=== PATIENT | female | born 1960 | race Caucasian/White ===

== ENCOUNTER → 2017-10-13 16:51 | Outpatient (CLI) | payer OTHER, SELFPAY | PROVIDERS: Family Provider Family Medicine; PCP Family Medicine; Visit Provider Otolaryngology Otolaryngology/Facial Plastic Surgery | DX: J32.9 Chronic sinusitis, unspecified (principal) | CPT/HCPCS: 87070; 87077; 87186; 87205 ==

== ENCOUNTER → 2017-12-24 16:00 | Outpatient (CLI) | payer OTHER, SELFPAY ==
--- NOTE | 2017-12-24 16:00 | DT_ITS ---
This patient was seen during an EMR downtime December 21, 2017 - December 28, 2017. This patient may have a combination of paper and electronic documentation or all paper documentation. All documentation is viewable within the e-chart portion of [facility] for each patient visit.
== END ==
PROVIDERS: Family Provider Family Medicine; PCP Family Medicine; Visit Provider Family Medicine
DX: N39.0 Urinary tract infection, site not specified (principal)
CPT/HCPCS: 87086; 87088

== ENCOUNTER → 2018-06-14 17:08 | Outpatient (CLI) | payer OTHER, SELFPAY ==
--- OUTSIDE RECORDS SUMMARY | 2018-07-27 16:23 | XMS RPT_ITS ---
:1960 Author Organization OH[facility] Care Team Providers Name Role Phone SYMONE FONSECA Referring Unavailable BRENDAN JAMESON (HIGH SCHOOL [employer] TE[employer]ER) Attending Unavailable ERIC NAYLOR Attending Unavailable ERIC NAYLOR Referring Unavailable JAYY CABRERA (HIGH SCHOOL [employer]EN[employer] TEACHER) Attending Unavailable JAYY CABRERA (HIGH SCHOOL [employer]EN[employer] TEACHER) Attending Unavailable ANNA LICEA Attending Unavailable JYOTI MATHIAS (RD) Attending Unavailable ERIC NAYLOR Referring Unavailable Mauricio Cadena Attending Unavailable Dylan Syed Primary Care Unavailable Mauricio Cadena Referring Unavailable Dylan Syed Attending Unavailable Dylan Syed Primary Care Unavailable Montse Sanchez Attending Unavailable Montse Sanchez Referring Unavailable Dylan Syed Primary Care Unavailable PROBLEMS PROBLEMS DATE TYPE CONDITION / CODE ATTENDING STATUS SOURCE 06/30/[address] [facility] thyroiditis / [facility] [place] E06.3(ICD-10) Repository 06/30/2018 Active Unspecified asthma, NA Active [facility] uncomplicated / [place] J45.909(ICD-10) Repository 06/30/2018 Active Essential (primary) NA Active [facility] hypertension / [place] I10(ICD-10) Repository 06/30/2018 Active Body mass index NA Active [facility] (bmi) 33.0-33.9, [place] adult / Repository Z68.33(ICD-10) 02/17/2018 Active Tinea unguium / NA Active [facility] B35.1(ICD-10) [place] Repository 01/14/2018 Unknown N39.0 - Urinary Syed, Dylan Active [place] tract infection, Community site not specified Hospital / N39.0(ICD-10) Repository 10/01/2017 Active Hyperglycemia, NA Active [facility] unspecified / [place] R73.9(ICD-10) Repository PROCEDURES PROCEDURES No Procedure Records FoundRESULTS RESULTS HOMOCYSTEINE Collected: 06/30/2018 Status: F Source: [place] 1:28 [facility] REPOSITORY TYPE CODE TESTS RESULT OUT OF REFERENCE UNITS RANGE LAB HOMCYS <15.1 umol/L Homocysteine 12.3 Performed By: #### HOMCYS, VITD, TGAB, MICRO, INSULN, HSCRP, HBA1C, GLIIGA, GLIIGG, TGIGA, TGIGG, MMA #### [facility] [address] [place] [address] VITAMIN D 25 HYDROXY Collected: 06/30/2018 Status: F Source: [place] 1:28 [facility] REPOSITORY TYPE CODE TESTS RESULT OUT OF REFERENCE UNITS RANGE LAB VITD 31.0-80.0 ng/mL Vitamin D 25 53.1 Hydroxy Result Comment: Classification of 25 [place] Vitamin D status: Insufficiency/Moderate Deficiency: < or = 30 ng/mL Sufficiency/Optimal Levels: 31 to 80 ng/mL Toxicity: > 100 ng/mL Test performed by chemiluminescent immunoassay. Performed By: #### HOMCYS, VITD, TGAB, MICRO, INSULN, HSCRP, HBA1C, GLIIGA, GLIIGG, TGIGA, TGIGG, MMA #### [facility] [address] [place] [id number] THYROGLOBULIN AB Collected: 06/30/2018 Status: F Source: [place] 1:28 PM [facility] REPOSITORY TYPE CODE TESTS RESULT OUT OF REFERENCE UNITS RANGE LAB TGAB <14.4 IU/mL Thyroglobulin Ab <1.0 Performed By: #### HOMCYS, VITD, TGAB, MICRO, INSULN, HSCRP, HBA1C, GLIIGA, GLIIGG, TGIGA, TGIGG, MMA #### [place] [id number] [place]PO ANTIBODY Collected: 06/30/2018 Status: F Source: [place] 1:28 [facility] REPOSITORY TYPE CODE TESTS RESULT OUT OF REFERENCE UNITS RANGE LAB MICRO <5.6 IU/mL TPO Antibody <1.0 Performed By: #### HOMCYS, VITD, TGAB, MICRO, INSULN, HSCRP, HBA1C, GLIIGA, GLIIGG, TGIGA, TGIGG, MMA #### [place] [address] INSULIN Collected: 06/30/2018 Status: F Source: [place] 1:[address] [place] [address] REPOSITORY TYPE CODE TESTS RESULT OUT OF REFERENCE UNITS RANGE LAB INSULN 1-24 uU/mL Insulin 19.5 Performed By: #### HOMCYS, VITD, TGAB, MICRO, INSULN, HSCRP, HBA1C, GLIIGA, GLIIGG, TGIGA, TGIGG, MMA #### [place] [address] ULTRA-SENSITIVE CRP Collected: 06/30/2018 Status: F Source: [place] 1:[address] [place] [address] REPOSITORY TYPE CODE TESTS RESULT OUT OF REFERENCE UNITS RANGE LAB CRPUS <3.1 mg/L High UltraSens 3.6 C-ReacProt Result Comment: (NOTE) hsCRP < 1.0 mg/L, relative risk is low hsCRP 1.0-3.0 mg/L, relative risk is average hsCRP > 3.0 mg/L, relative risk is high Reference: Millie TA, Nasrin GA, Guy RW, et al. Markers of Inflammation and Cardiovascular Disease. Application to Clinical and Public Health Practice. A Statement for Healthcare Professionals From the Centers for Disease Control and Prevention and the [place] [employer]. Circulation 2003;107:499-511. Performed By: #### HOMCYS, VITD, TGAB, MICRO, INSULN, HSCRP, HBA1C, GLIIGA, GLIIGG, TGIGA, TGIGG, MMA #### [facility] [address] [place] [address] HEMOGLOBIN A1C Collected: 06/30/2018 Status: F Source: [place] [address]:[address] [place] [address] REPOSITORY TYPE CODE TESTS RESULT OUT OF REFERENCE UNITS RANGE LAB HGBA1C 4.3-5.6 % Hemoglobin A1c 5.6 Result Comment: [place] [employer] guidelines indicate that patients with HgbA1c in the range 5.7-6.4% are at increased risk for development of diabetes, and intervention by lifestyle modification may be beneficial. HgbA1c greater or equal to 6.5% is considered diagnostic of diabetes. LAB HBA0 mg/dL Est. Average Glucose 114 Result Comment: eAG: (Estimated average glucose) is a calculated value from HgbA1c and is personal financial representative of the average blood glucose level in the last 2-3 month period. Performed By: #### HOMCYS, VITD, TGAB, MICRO, INSULN, HSCRP, HBA1C, GLIIGA, GLIIGG, TGIGA, TGIGG, MMA #### [facility] [address] [place] [address] GLIAD DEAMIDATED IGA Collected: 06/30/2018 Status: F Source: [address] REPOSITORY TYPE CODE TESTS RESULT OUT OF REFERENCE UNITS RANGE LAB GLIADA <20 Units Gliad IgA 3 Ab Result Comment: Negative : < 20 Units Weak Positive : 20 - 30 Units Moderate Pos to Strong Pos: >30 Units The following results were obtained with the [employer] QUANTA Lite Gliadin IgA BILL. Gliadin IgA values obtained with different manufacturers' assay methods may not be used interchangeably. The magnitude o f the reported IgA levels cannot be correlated to an endpoint titer. Performed By: #### HOMCYS, VITD, TGAB, MICRO, INSULN, HSCRP, HBA1C, GLIIGA, GLIIGG, TGIGA, TGIGG, MMA #### [facility] [address] [place], [place] [id number] GLIAD DEAMIDATED IGG Collected: 06/30/2018 Status: F Source: [place] [address]:[address] [place] [address] REPOSITORY TYPE CODE TESTS RESULT OUT OF REFERENCE UNITS RANGE LAB GLIADG <20 Units Gliad IgG 2 Ab Result Comment: Negative : < 20 Units Weak Positive : 20 - 30 Units Moderate Pos to Strong Pos: >30 Units The following results were obtained with the [employer] QUANTA Lite Gliadin IgG BILL. Gliadin IgG values obtained with different manufacturers' assay methods may not be used interchangeably. The magnitude o f the reported IgG levels cannot be correlated to an endpoint titer. Performed By: #### HOMCYS, VITD, TGAB, MICRO, INSULN, HSCRP, HBA1C, GLIIGA, GLIIGG, TGIGA, TGIGG, MMA #### [place] [id number] [place] [address] TRANSGLUTAMINASE IGA Collected: 06/30/2018 Status: F Source: [place] 1:[address] [place] [address] TYPE CODE TESTS RESULT OUT OF REFERENCE UNITS RANGE LAB TGIGA <20 Units Transglutaminase IgA 2 Result Comment: Negative : < 20 Units Weak Positive : 20 - 30 Units Moderate Pos to Strong Pos: >30 Units The following results were obtained with the [employer] QUANTA Lite h-tTG IgA BILL. h-tTG IgA values obtained with different manufacturers' assay methods may not be used interchangeably. The magnitude of th e reported IgA levels cannot be correlated to an endpoint titer. Performed By: #### HOMCYS, VITD, TGAB, MICRO, INSULN, HSCRP, HBA1C, GLIIGA, GLIIGG, TGIGA, TGIGG, MMA #### [facility] [address] [place] [address] TRANSGLUTAMINASE IGG Collected: 06/30/2018 Status: F Source: [place] 1:[address] [place] [address] REPOSITORY TYPE CODE TESTS RESULT OUT OF REFERENCE UNITS RANGE LAB TGIGG <20 Units Transglutaminase IgG 2 Result Comment: Negative : < 20 Units Weak Positive : 20 - 30 Units Moderate Pos to Strong Pos: >30 Units The following results were obtained with the [employer]ite h-hTG IgG BILL. h-tTG IgG values obtained with different manufacturers' assay methods may not be used interchangeably. The magnitude of th e reported IgG levels cannot be correlated to an endpoint titer. Performed By: #### HOMCYS, VITD, TGAB, MICRO, INSULN, HSCRP, HBA1C, GLIIGA, GLIIGG, TGIGA, TGIGG, MMA #### [facility] [place] [address] METHYLMALONIC ACID Collected: 06/30/2018 Status: F Source: [place] 1:28 PM [facility] REPOSITORY TYPE CODE TESTS RESULT OUT OF REFERENCE UNITS RANGE LAB MMA 79-376 nmol/L Methylmalonic Acid 121 Result Comment: This test was developed and its performance characteristics determined by [facility]'s [facility] [place] ([facility]). It has not been cleared or approved by the FDA. -[facility] is regulated under CLIA as qualified to perform high-complexity testing. This test is used for clinical purposes. It should not be regarded as investigational or for research. Performed By: #### HOMCYS, VITD, TGAB, MICRO, INSULN, HSCRP, HBA1C, GLIIGA, GLIIGG, TGIGA, TGIGG, MMA #### [facility] [place] [address] HEPATIC FUNCTN PANEL Collected: 06/30/2018 Status: F Source: [place] 1:27 PM [facility] REPOSITORY TYPE CODE TESTS RESULT OUT OF REFERENCE UNITS RANGE LAB ALB 3.9-4.9 g/dL Albumin 4.0 LAB TBIL 0.2-1.3 mg/dL Bilirubin, Total 0.4 LAB CBIL <0.2 mg/dL Bilirubin,Conjuga <0.2 [place] LAB ALKP 34-123 U/L Alkaline Phosphatase 52 LAB AST 13-35 U/L AST 23 LAB ALT 7-38 U/L ALT 22 LAB TP 6.3-8.0 g/dL Protein, Total 6.5 Performed By: #### HFP #### [facility] [place] [address] PROGRESS Observed: 06/30/2018 Status: COMPLETED Source: [place] 1:15 PM [facility] REPOSITORY HNO ID: [id number] Author: Jyoti Mathias Service: (none) Author Type: Registered Dietitian Type: Progress Notes Filed: 07/01/2018 5:22 PM Note Text: [facility] Nutrition Therapy: Initial Assessment (Group) Patient Name: Cassandra Mejia Class Topic: Functional Nutrition and Elimination Diet Introduction Education Materials: IFM Elimination Diet Food List, Weekly Glassie and Recipes, Comprehensive Guide, Adaptable Meals, Dirty Dozen Chief Concerns: 1. depression anexity 2. hypothroiism 3. weight gain MSQ Score: 58, skin, nose, digestive tract Is the patient having any pain that is interfering with oral intake? No Past Medical History: PAST MEDICAL HISTORY Diagnosis Date - Allergic rhinitis - Asthma - Depression - Essential hypertension - GERD (gastroesophageal reflux disease) - Hiatal hernia - UTI (lower urinary tract infection) Anthropometrics: There were no vitals taken for this visit. Height: Last 1 Encounter Ht Readings: Date: Ht: 01/30/2017 154.9 cm (5' 1) Current weight: Last 1 Encounter Wt Readings: Date: Wt: 04/17/2018 73.5 kg (162 lb) Wt: 73.5 kg (162 lb) BMI: 30.61 kg/(m2) Resting Metabolic Rate: 1250 Lifestyle: Weight issues: Yes, Adequate, restful sleep?: No Currently exercising?: Yes, walking and light weights GI symptoms: heartburn, belching Dietary pattern: Current diet: No Food allergies:No Food sensitivities: Yes, white fish Reported lifestyle behaviors and eating habits:late-night eating,poor snack choices,eat too much under stress Diet Recall: Yes, B: Yogurt coffee oatmeal L: Soup or leftover from supper night before small amount fruit D: Meat , veggie, potatoes , rice Snacks: chocolate Beverages: Water diet benjamin Pepsi coffee Excessive stress reported?: Yes, work, finances, family. Recently - moving to a new place soon and is ready to work on her life and diet per MD note. 58 year old female presents for nutrition assessment relative to depression, weight gain and hypothyroidism. C/o low energy. Past medical history is notable for multiple infections with antibiotic use. Diet recall includes no current diet but appears to consume a lot of carbohydrates and some artificial sweeteners (Diet Pepsi). Due to weight concerns and hypothyroid, patient would benefit from whole foods, plant based, low glycemic food plan that minimizes potential food triggers and utilizes strategies to aid in good digestion and minimize inflammation. Provider Nutrition Notes: Functional Nutrition: Elimination Diet--> renew diet Nutrition Diagnosis: Obesity relates to excess food intake and inactivity as evidenced by BMI Food and nutrition related knowledge deficit related to lack of prior education as evidenced by patient's verbalized inaccurate/incomplete information. Altered nutrition related lab values related to hypertension as evidenced by EMR/PMH Gen's thyroiditis Moderate asthma Nutrition Intervention 06/30/2018: Nutrition education: 1. Whole foods, plant based, low glycemic, comprehensive elimination diet 2. Adequate hydration 3. Self-Monitoring: Track food/beverage intake 4. Schedule follow up for food reintroduction and further personalization of eating plan Nutrition Monitoring AND Evaluation: Adherence to elimination diet Criteria: Patient recall, food diary Follow up: 3 months Time Spent: 60 minutes Referred/Supervised by: Dr. Anna Licea Consult Billing Type: Group/60 minutes Number of Increments: 2 (60 minutes) Abstract Prepared by: Adalid Henson, Student Signed by: Jyoti Mathias RD CNCNPATED Observed: 06/30/2018 Status: COMPLETED Source: [place] 1:15 PM [facility] REPOSITORY Education ([facility]) CASSANDRA MEJIA ([id number]) 1960 F Date Time Provider Department 06/30/18 1:15 PM JYOTI MATHIAS ([place]) [facility] Reason for Visit: Patient Education [91] Progress Notes: Jyoti Mathias RD 07/01/2018 5:22 PM Signed [facility] Functional Medicine Nutrition Therapy: Initial Assessment (Group) Patient Name: Cassandra Mejia Class Topic: Functional Nutrition and Elimination Diet Introduction Education Materials: IFM Elimination Diet Food List, Weekly Glassie and Recipes, Comprehensive Guide, Adaptable Meals, Dirty Dozen Chief Concerns: 1. depression anexity 2. hypothroiism 3. weight gain MSQ Score: 58, skin, nose, digestive tract Is the patient having any pain that is interfering with oral intake? No Past Medical History: PAST MEDICAL HISTORY Diagnosis Date - Allergic rhinitis - Asthma - Depression - Essential hypertension - GERD (gastroesophageal reflux disease) - Hiatal hernia - UTI (lower urinary tract infection) Anthropometrics: There were no vitals taken for this visit. Height: Last 1 Encounter Ht Readings: Date: Ht: 01/30/2017 154.9 cm (5' 1) Current weight: Last 1 Encounter Wt Readings: Date: Wt: 04/17/2018 73.5 kg (162 lb) Wt: 73.5 kg (162 lb) BMI: 30.61 kg/(m2) Resting Metabolic Rate: 1250 Lifestyle: Weight issues: Yes, Adequate, restful sleep?: No Currently exercising?: Yes, walking and light weights GI symptoms: heartburn, belching Dietary pattern: Current diet: No Food allergies:No Food sensitivities: Yes, white fish Reported lifestyle behaviors and eating habits:late-night eating,poor snack choices,eat too much under stress Diet Recall: Yes, B: Yogurt coffee oatmeal L: Soup or leftover from supper night before small amount fruit D: Meat , veggie, potatoes , rice Snacks: chocolate Beverages: Water diet benjamin Pepsi coffee Excessive stress reported?: Yes, work, finances, family. Recently - moving to a new place soon and is ready to work on her life and diet per MD note. 58 year old female presents for nutrition assessment relative to depression, weight gain and hypothyroidism. C/o low energy. Past medical history is notable for multiple infections with antibiotic use. Diet recall includes no current diet but appears to consume a lot of carbohydrates and some artificial sweeteners (Diet Pepsi). Due to weight concerns and hypothyroid, patient would benefit from whole foods, plant based, low glycemic food plan that minimizes potential food triggers and utilizes strategies to aid in good digestion and minimize inflammation. Provider Nutrition Notes: Functional Nutrition: Elimination Diet--> renew diet Nutrition Diagnosis: Obesity relates to excess food intake and inactivity as evidenced by BMI Food and nutrition related knowledge deficit related to lack of prior education as evidenced by patient's verbalized inaccurate/incomplete information. Altered nutrition related lab values related to hypertension as evidenced by EMR/PMH Gen's thyroiditis Moderate asthma Nutrition Intervention 06/30/2018: Nutrition education: 1. Whole foods, plant based, low glycemic, comprehensive elimination diet 2. Adequate hydration 3. Self-Monitoring: Track food/beverage intake 4. Schedule follow up for food reintroduction and further personalization of eating plan Nutrition Monitoring AND Evaluation: Adherence to elimination diet Criteria: Patient recall, food diary Follow up: 3 months Time Spent: 60 minutes Referred/Supervised by: Dr. Anna Licea Consult Billing Type: Group/60 minutes Number of Increments: 2 (60 minutes) Abstract Prepared by: Adalid Henson, Student Signed by: Jyoti Mathias RD Previous Version Primary Visit Diagnosis:Gen's thyroiditis [E06.3] Other Visit Diagnoses:Moderate asthma without complication, unspecified whether persistent [J45.909] Essential hypertension [I10] BMI 33.0-33.9,adult [Z68.33] Obesity (BMI 30-39.9) [E66.9] Dietary counseling and surveillance [Z71.3] During your visit today, we recorded the following information about you: Allergies As of Date: 06/30/2018 Noted Allergy Reaction ANIMAL DANDER 11/12/2012 14 - Other: See Comments Comments: congestion, sneezing, runny nose DUST 11/12/2012 14 - Other: See Comments Comments: stuffy nose POLLEN 11/12/2012 14 - Other: See Comments Comments: stuffy nose, congestion, watery eyes Mold also Date Reviewed: 06/30/2018 Reviewed by: Marleny Kennedy Student - Fully Assessed Prescriptions as of 06/30/2018 Sig: ACETAMINOPHEN 500 MG TABLET Take 2 tablets by mouth every* Patient not taking: Reported on 06/30/2018 ACYCLOVIR 400 MG TABLET Take 1 tablet by mouth twice * Patient not taking: Reported on 06/30/2018 PROVENTIL INHALATION Inhale 2 Puffs as instructed * ALPRAZOLAM 0.5 MG TABLET Take 1 tablet by mouth at bed* CALCIUM + D ORAL Take 1 tablet by mouth once d* B-12 DOTS ORAL Take 3,000 Units by mouth onc* MUCINEX D ORAL Take by mouth twice daily. HYDROCORTISONE 2.5 % TOPICAL * Apply 1 application to affect* Patient not taking: Reported on 06/30/2018 IBUPROFEN 600 MG TABLET Take 1 tablet by mouth every * INDAPAMIDE 1.25 MG TABLET Take 1.25 mg by mouth once da* CLARITIN ORAL Take 1 tablet by mouth daily * NASONEX NASAL Use 1 Earlimart in the nose once * MONTELUKAST 10 MG TABLET Take 1 tablet by mouth daily * OXYCODONE-ACETAMINOPHEN 5 MG-* Take 1 tablet by mouth every * Patient not taking: Reported on 02/17/2018 VENLAFAXINE ER 150 MG CAPSULE* Take 150 mg by mouth once jodi* Encounter Status:Closed by JYOTI MATHIAS on 07/01/18 PROGRESS Observed: 06/30/2018 Status: COMPLETED Source: [place] 11:15 AM [facility] REPOSITORY HNO ID: [id number] Author: Anna Licea Service: (none) Author Type: Physician Type: Progress Notes Filed: 06/30/2018 1:46 PM Note Text: FUNCTIONAL MEDICINE INITIAL ASSESSMENT Patient: Cassandra Mejia ALLERGIES Allergen Reactions - Animal Dander Other: See Comments congestion, sneezing, runny nose - Dust Other: See Comments stuffy nose - Pollen Other: See Comments stuffy nose, congestion, watery eyes Mold also Current Outpatient Prescriptions: ALPRAZolam (XANAX) 0.5 mg tablet Take 1 tablet by mouth at bedtime as needed. Disp: Rfl: 0 CYANOCOBALAMIN, VITAMIN B-12, (B-12 DOTS ORAL) Take 3,000 Units by mouth once daily. Disp: Rfl: ibuprofen (MOTRIN) 600 mg tablet Take 1 tablet by mouth every 6 hours as needed for Pain. Take with food. Disp: 60 tablet Rfl: 0 indapamide (LOZOL) 1.25 mg tablet Take 1.25 mg by mouth once daily. Disp: Rfl: LORATADINE (CLARITIN ORAL) Take 1 tablet by mouth daily at bedtime. Disp: Rfl: MOMETASONE FUROATE (NASONEX NASAL) Use 1 Earlimart in the nose once daily. Disp: Rfl: venlafaxine XR (EFFEXOR XR) 150 mg 24 hr capsule Take 150 mg by mouth once daily. Disp: Rfl: acetaminophen (TYLENOL) 500 mg tablet Take 2 tablets by mouth every 8 hours as needed. (Patient not taking: Reported on 06/30/2018 ) Disp: 90 tablet Rfl: 0 acyclovir (ZOVIRAX) 400 mg tablet Take 1 tablet by mouth twice daily. (Patient not taking: Reported on 06/30/2018 ) Disp: 180 tablet Rfl: 3 ALBUTEROL SULFATE (PROVENTIL INHALATION) Inhale 2 Puffs as instructed as needed. Disp: Rfl: CALCIUM CARBONATE/VITAMIN D3 (CALCIUM + D ORAL) Take 1 tablet by mouth once daily. Disp: Rfl: GUAIFENESIN/PSEUDOEPHEDRNE HCL (MUCINEX D ORAL) Take by mouth twice daily. Disp: Rfl: hydrocortisone 2.5 % cream Apply 1 application to affected area twice daily. Apply to affected area sparingly. (Patient not taking: Reported on 06/30/2018 ) Disp: 40 g Rfl: 0 Lavela WS 1265 ([employer]) sleep/calming/anxiety 1 at bedtime - may also use 1 in AM for relaxation/anxiety Disp: Rfl: 0 Melatonin-SR (Klaire/Prothera) 2mg bones/hormones/sleep/reflux/prostate 1 by mouth 30 minutes before bed Disp: Rfl: 3 montelukast (SINGULAIR) 10 mg tablet Take 1 tablet by mouth daily at bedtime. Disp: Rfl: 0 oxyCODONE-acetaminophen (PERCOCET) 5-325 mg tablet Take 1 tablet by mouth every 6 hours as needed for Pain. (Patient not taking: Reported on 02/17/2018 ) Disp: 20 tablet Rfl: 0 PureLean Pure Pack (Pure Encapsulations) Take 1 packet daily with food. Disp: Rfl: Ther-Biotic Complete Capsules (Klaire/Prothera) probiotic (FRIDGE) Take 1 capsule by mouth once daily. Disp: Rfl: 0 WellBetX PGX Ultra Matrix (Natural Factors) Take 2 capsules with 8 ounces of water 5-10 minutes before meals. Disp: Rfl: No current facility-administered medications for this visit. PAST MEDICAL HISTORY Diagnosis Date - Allergic rhinitis - Asthma - Depression - Essential hypertension - GERD (gastroesophageal reflux disease) - Hiatal hernia - UTI (lower urinary tract infection) PAST SURGICAL HISTORY Procedure Laterality Date - DANDC, DIAG AND/OR THERAPEUTIC 1999, 2000 Dilation AND curettage x2 - LAP CHOLECYSTECT/CHOLANGIOGRAPHY 02/02/2017 normal IOC - PAST SURGICAL HISTORY OF 03/11/2016 Right iliococcygeus vaginal vault suspension, Anterior colporrhaphy, René transobturator midurethral sling, Rectocele repair with perineorrhaphy, cystoscopy - REMOVAL OF TONSILS,<11 Y/O Tonsillectomy - VAGINAL HYSTERECTOMY 2009 Hysterectomy, vaginal, ovaries remain Social History Marital status: Spouse name: Years of education: Number of children: 2 Occupational History Occupation Employer Comment [employer] Social History Main Topics Smoking status: Never Smoker Smokeless tobacco: Never Used Alcohol use: Yes Comment: social Drug use: No Sexual activity: Yes Partners with: Male EVALUATION MSQ: 76 Patient Goals: 1. Lose weight 2. More energy 3. Less depressed HPI: 58 yr old female here for her initial functional medicine assessment. Patient's main goal is that she wants to work on losing weight more energy and less depression. Patient's long history of many infections antibiotics for years poor diet a lot of stressors with her family. Patient also had been in the relationship of the marriage which was not very supportive and she recently just became divorce [facility] and is ready to work on her diet and her life. Timeline: See Living Matrix : Full term Vaginal Bottle fed Meat based formula special/ allergies , all kids have this ie ( eggs ) Allergic to many environmental problems Bronchitis , pneumonia Age 4- Baby teeth bad from antibiotics--> removed baby teeth Eczema Elementary: URI--> very sick , Asthma Vitamin shots ? 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 Met her / at age 32, first child at 33 ( natural delivery ) age 35 sec child ok epidural( surgery for vaginal hematoma ) Weight issues started Sinus infections, allergies shots started immunotherapy/ started medications, proventil inhaler ---> 40's depression set in, antidepressants Prozac started , Xanax as needed for panic attacks , Dx Dyslexia / 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// fought the school Age 41 father of CVA/ blood thinners / brain aneurysm/ life support Age 47 CONSTANCE prolapse left ovaries in 50's occ hot flashes Age 53 Thyroid disease started # 223 pounds highest, went on topamax, exercise, and diet --->Age 54 Mother at , sepsis ( very hard for her ) did do counseling, grief longer lasting 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 Bioelectrical Impedance Analysis Results by [employer] Recent Results from: 06/30/18 at 13:06 PM BMI: 33.63 kg/m? General Test Result Range Phase Angle (PA) Basal Metabolic Rate (BMR) Fat AND Fat Free Mass Test Result Range Fat (lbs) Fat % Fat Free Mass (FFM) lbs Total Body Water Test Result Range TBW (lbs) TBW % of FFM Intracellular Water Test Result Range ICW (lbs) ICW % of FFM Extracellular Water Test Result Range ECW (lbs) ECW % of FFM PHYSICAL EXAM: Skull: Oval Hair Distribution: Normal FACE Eyebrows: Normal Lips/Chin: Normal Color: Normal Texture: Normal EYES/PERIORBITAL EXAM Eyelids: Normal Conjunctiva: Normal Lens: Normal Iris: Normal Pupils: Normal Movements: Normal Sinus Tenderness: None MOUTH Jaw Movement: Symmetric (No Pain) Lips: Normal Soft Palate, Hard Palate, Tonsils, Pillars: Normal Tongue: Coated white, dry Gums: Normal Buccal Mucosa: Normal Teeth: Healthy - Multiple silver amalgams Restorations Chew/Swallow: Normal swallowing NECK Symmetry: Symetrical Midline Trachea: Symetrical Musculature Tender: None Glands Salivary: Normal Size: Normal Normal Swallow: Normal HEART: RRR without murmur, gallop, or rubs. No ectopy. LUNGS: Lungs clear to auscultation. No wheezing or ronchi. ABDOMEN: Normal abdominal exam, Abdomen soft, non-tender. Bowel sounds normal. No masses, organomegaly NEURO: Gait normal. Reflexes normal and symmetric. Sensation grossly intact., Cranial nerves II-XII intact SKIN Temperature Hands: normal Temperature Feet: normal Texture of Skin: Normal Color: Normal Hydration: Normal Periorifice: Normal Lesions: None EXTREMITIES Nails: Thin, brittle, ridges Peripheral Sensation: Normal Muscle Strength: Normal Muscle Symmetry: Normal Assessment Assessment: E06.3 Gen's thyroiditis (primary encounter diagnosis) J45.909 Moderate asthma without complication, unspecified whether persistent I10 Essential hypertension Z68.33 BMI 33.0-33.9,adult Initial Functional Medicine Assessment Underlying Causes: stress, adverse reaction to food, nutritional insufficiencies or excesses, infections Today's Focus: gut healing, detoxification Nutritional Assessment SAD Low Vit D 22.7 Digestive Function Constipation Lap tyrell 02/02/17 Inflammation/Immune Function Eczema, Yeast, Infections, Autoimmune -thyroid- on synthroid 25 mcg Chronic UTI's- chronic ABX's , maintenance dose of septra in Asthma- exercise induced Environmental allergies- claritin, singular Energy Production/Function: Fatigue, Weight issues Depression- Wellbutrin, Contrave Anxiety- Xanax prn ( 1/2 tab per day with grief mom ) Prediabetes A1 c 5.9 % Sleep issues Grieving Detoxification Function Mercury/Amalgams, Chemical sensitivity, Cigarette smoking, Medications Mold Hormonal Function: Menopause/Hot flashes Structural Function: Edema-on Lozol Snoring Plan and Lifestyle Prescription Plan/Instructions/Resources: CFM labs today 1. Gut healing // PGX capsules 1-2 prior to each meal, 3 times per day Pure lean pack while on your weight loss regimen Probiotic added 2. Stress reduction// Anxiety---> lavela capsule twice daily 3. Exercise is critical / walking 4. Sleep- take melatonin SR- with Lavela ---> 1/2 trazodone if needed 5. Recommend a sleep study with PCP at home. Future Plans: food allegies Heavy metals ? sibo Follow up: Please schedule a follow up visit with the following Caregivers: Provider: 12weeks and Flat Knitter: 6 weeks LIFESTYLE PRESCRIPTION Functional Nutrition: Elimination Diet--> renew diet Sleep: Sleep goal for most adults is a minimum of 7-9 hours nightly. Studies consistently show that less than 6 hours of sleep for even just a few nights can alter gene expression of over 700 different genes! This can lead to reduced immunity and altered hormone levels which can increase inflammation and cause weight gain, poor blood sugar regulation, memory problems and numerous other negative effects. Please make sleep a priority. Be very protective of your sleep time and find a routine that works for you. Your body (and mind) will thank you!!!! Sleep hygiene tips: Recommend no ?screen activity? at least 1 hour before bed (no TV, computer monitor, iPad, Steven, or Smart Phone usage). Sleep in a cool, dark room. No buzzing or binging objects in your bedroom except alarm clock. Try to get 7-8 hours of sleep per night. Exercise Prescription: Numerous studies confirm the benefits of regular moderate aerobic exercise (walking, swimming, elliptical machine, cycling, etc.) for 30 min 5 days per week (150 min goal). Resistance training for 20 min twice weekly will also help build lean muscle mass, maintain bone mineral density, reduce body fat, and increase metabolic rate (helps you to burn calories more efficiently--even at rest). High intensity interval training-Alternatively, some new research suggest very short, intense bursts of activity for just 4 minutes per day 3-4 times/week may be as effective (or even beter) than longer, low to moderate exercise sessions. If this appeals to you, please try the following: Do 1 exercise such as jumping rope, running in place, Burpees or jump squats for 30-60 seconds as hard as you can. Use a timer to ensure you're at maximal intensity for the full minute. Do this for 60 seconds 4 separate times throughout the day. Alternate days that you do this taking a day off in between. Max 3-4 times a week. If you can go longer than 60 seconds you are not going hard enough! If you choose to do the 4 bursts consecutively you must do something less strenuous (to allow the muscles time to recover) for 4 minutes before you repeat the next 60 second burst. If you cannot complete the next set of 60 seconds then you did not wait long enough for your muscle to recover. However, there is a benefit to dividing the 4 minutes bursts throughout the day vs. all at once. Stress Management: 1) Please look into this Heart Rate Variability BioFeedback Tool (www.heartmath.org). You can see the research that has been put into this very valuable tool under the Resources and Research tabs. This can be used as an stella on your smart phone. You will need to buy a sensor that plugs right into the phone for about $100. First, get one of the Heart Math booklets off [employer]estly.com that fits your 'go to' emotion - Transforming Anger, Anxiety, Stress, Depression, or PTSD. Five minutes 3X a day is more effective than 15 minutes in one sitting. 2) A regular, daily meditation practice of at least 15-20 minutes will change your brain--as well as your genes! Preliminary studies demonstrate gene expression is modified in those who meditate regularly leading to down-regulation of pro-inflammatory genes. This results in reduced inflammation, as well as improvements in the body's response to stress via the hormone cortisol, in the intervention groups vs. the controls. Although more research is needed, these findings suggest a definite role for meditation in the treatment and prevention of chronic inflammatory conditions. Behavioral Health Therapist: If I recommended counseling or individual therapy, please schedule an individual appointment with our Functional Medicine Behavioral Health Therapist , LUDY Jackson, after your visit today. Health Coaching: Please consider scheduling with our [place] [facility] Functional Medicine health coaches for a phone or virtual visit for accountability, goal setting and help with behavior record changer the next 6-8 weeks to be successful with your goals. [phone]. Smart phone apps to begin a meditative practice: Headspace (free for first 10 days) Insight Meditation Timer- (Free)-Great all-around stella to use for guided meditations of many different types and lengths or just to use as a tool to time and track your meditation practice. This is my absolute favorite! Calm- (Free) Walking Meditations-($1.99)- Get your walk AND meditation done together. A good way to start out for individuals who feel they just can't sit still to begin a meditative practice. Medications/Supplements Recommended: Medication orders placed this encounter Anne Marie WS 1265 ([employer]) sleep/calming/anxiety Si at bedtime - may also use 1 in AM for relaxation/anxiety Refill: 0 Melatonin-SR (Klaire/Prothera) 2mg bones/hormones/sleep/reflux/prostate Si by mouth 30 minutes before bed Refill: 3 PureLean Pure Pack (Pure Encapsulations) Sig: Take 1 packet daily with food. Ther-Biotic Complete Capsules (Klaire/Prothera) probiotic (FRIDGE) Sig: Take 1 capsule by mouth once daily. Refill: 0 WellBetX PGX Ultra Matrix (Natural Factors) Sig: Take 2 capsules with 8 ounces of water 5-10 minutes before meals. I recommend the supplements from the [facility] Healthy Living Store at [email or web address] as we have thoroughly evaluated the research and use only highest quality supplements. During the next 6-8 weeks you'll be working on your diet plan discussed with our injection molding machine offbearer, allowing for gentle detoxification and decreasing inflammation - while we are gathering your lab results and combining those with your complete history to formulate a very personalized treatment plan. LAB results: Due to the complexity of the testing performed, we are not able to review labs via Fidelishart or over the phone, but please know, if any of your labs are critical we will contact you. Otherwise, we will review all your labs at your next visit. We will go over a lot of information during your follow up visit - so please be well-rested and you may want to bring someone with you, if possible. Also make sure to schedule with the injection molding machine offbearer (this will not happen automatically). Potential future labs: Any [employer] labs ordered take about 4 weeks to return. Do them as soon as possible so that we have the results before your next appointment. You can access them on the [employer] website and it can be beneficial if you review them prior to your next visit. [email or web address]. Read about NutrEval if this was ordered. Time spend with patient: I spent 60 minutes in the visit, with more than 50% of the time spent counseling in regards to above. . Anna Licea MD CNOV Observed: 06/30/2018 Status: COMPLETED Source: [place] 11:15 AM [facility] REPOSITORY Office Visit (MEDN) MARLENCASSANDRA GREEN ([id number]) 1960 F Date Time Provider Department 06/30/18 11:15 AM ANNA LICEA [facility] During your visit today, we recorded the following information about you: Pulse Blood pressure Weight Height 88/minute 148/85 80.7 kg 1.549 m Anna Licea MD 06/30/2018 1:46 PM Signed FUNCTIONAL MEDICINE INITIAL ASSESSMENT Patient: Cassandra Mejia ALLERGIES Allergen Reactions - Animal Dander Other: See Comments congestion, sneezing, runny nose - Dust Other: See Comments stuffy nose - Pollen Other: See Comments stuffy nose, congestion, watery eyes Mold also Current Outpatient Prescriptions: ALPRAZolam (XANAX) 0.5 mg tablet Take 1 tablet by mouth at bedtime as needed. Disp: Rfl: 0 CYANOCOBALAMIN, VITAMIN B-12, (B-12 DOTS ORAL) Take 3,000 Units by mouth once daily. Disp: Rfl: ibuprofen (MOTRIN) 600 mg tablet Take 1 tablet by mouth every 6 hours as needed for Pain. Take with food. Disp: 60 tablet Rfl: 0 indapamide (LOZOL) 1.25 mg tablet Take 1.25 mg by mouth once daily. Disp: Rfl: LORATADINE (CLARITIN ORAL) Take 1 tablet by mouth daily at bedtime. Disp: Rfl: MOMETASONE FUROATE (NASONEX NASAL) Use 1 Earlimart in the nose once daily. Disp: Rfl: venlafaxine XR (EFFEXOR XR) 150 mg 24 hr capsule Take 150 mg by mouth once daily. Disp: Rfl: acetaminophen (TYLENOL) 500 mg tablet Take 2 tablets by mouth every 8 hours as needed. (Patient not taking: Reported on 06/30/2018 ) Disp: 90 tablet Rfl: 0 acyclovir (ZOVIRAX) 400 mg tablet Take 1 tablet by mouth twice daily. (Patient not taking: Reported on 06/30/2018 ) Disp: 180 tablet Rfl: 3 ALBUTEROL SULFATE (PROVENTIL INHALATION) Inhale 2 Puffs as instructed as needed. Disp: Rfl: CALCIUM CARBONATE/VITAMIN D3 (CALCIUM + D ORAL) Take 1 tablet by mouth once daily. Disp: Rfl: GUAIFENESIN/PSEUDOEPHEDRNE HCL (MUCINEX D ORAL) Take by mouth twice daily. Disp: Rfl: hydrocortisone 2.5 % cream Apply 1 application to affected area twice daily. Apply to affected area sparingly. (Patient not taking: Reported on 06/30/2018 ) Disp: 40 g Rfl: 0 Lavela WS 1265 ([employer]) sleep/calming/anxiety 1 at bedtime - may also use 1 in AM for relaxation/anxiety Disp: Rfl: 0 Melatonin-SR (Klaire/Prothera) 2mg bones/hormones/sleep/reflux/prostate 1 by mouth 30 minutes before bed Disp: Rfl: 3 montelukast (SINGULAIR) 10 mg tablet Take 1 tablet by mouth daily at bedtime. Disp: Rfl: 0 oxyCODONE-acetaminophen (PERCOCET) 5-325 mg tablet Take 1 tablet by mouth every 6 hours as needed for Pain. (Patient not taking: Reported on 02/17/2018 ) Disp: 20 tablet Rfl: 0 PureLean Pure Pack (Pure Encapsulations) Take 1 packet daily with food. Disp: Rfl: Ther-Biotic Complete Capsules (Klaire/Prothera) probiotic (FRIDGE) Take 1 capsule by mouth once daily. Disp: Rfl: 0 WellBetX PGX Ultra Matrix (Natural Factors) Take 2 capsules with 8 ounces of water 5-10 minutes before meals. Disp: Rfl: No current facility-administered medications for this visit. PAST MEDICAL HISTORY Diagnosis Date - Allergic rhinitis - Asthma - Depression - Essential hypertension - GERD (gastroesophageal reflux disease) - Hiatal hernia - UTI (lower urinary tract infection) PAST SURGICAL HISTORY Procedure Laterality Date - DANDC, DIAG AND/OR THERAPEUTIC 1999, 2000 Dilation AND curettage x2 - LAP CHOLECYSTECT/CHOLANGIOGRAPHY 02/02/2017 normal IOC - PAST SURGICAL HISTORY OF 03/11/2016 Right iliococcygeus vaginal vault suspension, Anterior colporrhaphy, René transobturator midurethral sling, Rectocele repair with perineorrhaphy, cystoscopy - REMOVAL OF TONSILS,<12 Y/O Tonsillectomy - VAGINAL HYSTERECTOMY 2009 Hysterectomy, vaginal, ovaries remain Social History Marital status: Spouse name: Years of education: Number of children: 2 Occupational History Occupation Employer Comment [employer] Social History Main Topics Smoking status: Never Smoker Smokeless tobacco: Never Used Alcohol use: Yes Comment: social Drug use: No Sexual activity: Yes Partners with: Male EVALUATION MSQ: 76 Patient Goals: 1. Lose weight 2. More energy 3. Less depressed HPI: 58 yr old female here for her initial functional medicine assessment. Patient's main goal is that she wants to work on losing weight more energy and less depression. Patient's long history of many infections antibiotics for years poor diet a lot of stressors with her family. Patient also had been in the relationship of the marriage which was not very supportive and she recently just became divorce going to move to a new condo and is ready to work on her diet and her life. Timeline: See Living Matrix : Full term Vaginal Bottle fed Meat based formula special/ allergies , all kids have this ie ( eggs ) Allergic to many environmental problems Bronchitis , pneumonia Age 4- Baby teeth bad from antibiotics--> removed baby teeth Eczema Elementary: URI--> very sick , Asthma Vitamin shots ? 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 Met her / at age 32, first child at 33 ( natural delivery ) age 35 sec child ok epidural( surgery for vaginal hematoma ) Weight issues started Sinus infections, allergies shots started immunotherapy/ started medications, proventil inhaler ---> 40's depression set in, antidepressants Prozac started , Xanax as needed for panic attacks , Dx 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 / 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// fought the school Age 41 father of CVA/ blood thinners / brain aneurysm/ life support Age 48 CONSTANCE prolapse left ovaries in 50's occ hot flashes Age 53 Thyroid disease started # 223 pounds highest, went on topamax, exercise, and diet --->Age 54 Mother at , sepsis ( very hard for her ) did do counseling, grief longer lasting 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 Bioelectrical Impedance Analysis Results by [employer] Recent Results from: 06/30/18 at 13:06 PM BMI: 33.63 kg/m? General Test Result Range Phase Angle (PA) Basal Metabolic Rate (BMR) Fat AND Fat Free Mass Test Result Range Fat (lbs) Fat % Fat Free Mass (FFM) lbs Total Body Water Test Result Range TBW (lbs) TBW % of FFM Intracellular Water Test Result Range ICW (lbs) ICW % of FFM Extracellular Water Test Result Range ECW (lbs) ECW % of FFM PHYSICAL EXAM: Skull: Oval Hair Distribution: Normal FACE Eyebrows: Normal Lips/Chin: Normal Color: Normal Texture: Normal EYES/PERIORBITAL EXAM Eyelids: Normal Conjunctiva: Normal Lens: Normal Iris: Normal Pupils: Normal Movements: Normal Sinus Tenderness: None MOUTH Jaw Movement: Symmetric (No Pain) Lips: Normal Soft Palate, Hard Palate, Tonsils, Pillars: Normal Tongue: Coated white, dry Gums: Normal Buccal Mucosa: Normal Teeth: Healthy - Multiple silver amalgams Restorations Chew/Swallow: Normal swallowing NECK Symmetry: Symetrical Midline Trachea: Symetrical Musculature Tender: None Glands Salivary: Normal Size: Normal Normal Swallow: Normal HEART: RRR without murmur, gallop, or rubs. No ectopy. LUNGS: Lungs clear to auscultation. No wheezing or ronchi. ABDOMEN: Normal abdominal exam, Abdomen soft, non-tender. Bowel sounds normal. No masses, organomegaly NEURO: Gait normal. Reflexes normal and symmetric. Sensation grossly intact., Cranial nerves II-XII intact SKIN Temperature Hands: normal Temperature Feet: normal Texture of Skin: Normal Color: Normal Hydration: Normal Periorifice: Normal Lesions: None EXTREMITIES Nails: Thin, brittle, ridges Peripheral Sensation: Normal Muscle Strength: Normal Muscle Symmetry: Normal Assessment Assessment: E06.3 Gen's thyroiditis (primary encounter diagnosis) J45.909 Moderate asthma without complication, unspecified whether persistent I10 Essential hypertension Z68.33 BMI 33.0-33.9,adult Initial Functional Medicine Assessment Underlying Causes: stress, adverse reaction to food, nutritional insufficiencies or excesses, infections Today's Focus: gut healing, detoxification Nutritional Assessment SAD Low Vit D 22.7 Digestive Function Constipation Lap tyrell 02/02/17 Inflammation/Immune Function Eczema, Yeast, Infections, Autoimmune -thyroid- on synthroid 25 mcg Chronic UTI's- chronic ABX's , maintenance dose of septra in Asthma- exercise induced Environmental allergies- claritin, singular Energy Production/Function: Fatigue, Weight issues Depression- Wellbutrin, Contrave Anxiety- Xanax prn ( 1/2 tab per day with grief mom ) Prediabetes A1 c 5.9 % Sleep issues Grieving Detoxification Function Mercury/Amalgams, Chemical sensitivity, Cigarette smoking, Medications Mold Hormonal Function: Menopause/Hot flashes Structural Function: Edema-on Lozol Snoring Plan and Lifestyle Prescription Plan/Instructions/Resources: CFM labs today 1. Gut healing // PGX capsules 1-2 prior to each meal, 3 times per day Pure lean pack while on your weight loss regimen Probiotic added 2. Stress reduction// Anxiety---> lavela capsule twice daily 3. Exercise is critical / walking 4. Sleep- take melatonin SR- with Lavela ---> 1/2 trazodone if needed 5. Recommend a sleep study with PCP at home. Future Plans: food allegies Heavy metals ? sibo Follow up: Please schedule a follow up visit with the following Caregivers: Provider: 12weeks and Flat Knitter: 6 weeks LIFESTYLE PRESCRIPTION Functional Nutrition: Elimination Diet--> renew diet Sleep: Sleep goal for most adults is a minimum of 7-9 hours nightly. Studies consistently show that less than 6 hours of sleep for even just a few nights can alter gene expression of over 700 different genes! This can lead to reduced immunity and altered hormone levels which can increase inflammation and cause weight gain, poor blood sugar regulation, memory problems and numerous other negative effects. Please make sleep a priority. Be very protective of your sleep time and find a routine that works for you. Your body (and mind) will thank you!!!! Sleep hygiene tips: Recommend no ?screen activity? at least 1 hour before bed (no TV, computer monitor, iPad, Steven, or Smart Phone usage). Sleep in a cool, dark room. No buzzing or binging objects in your bedroom except alarm clock. Try to get 7-8 hours of sleep per night. Exercise Prescription: Numerous studies confirm the benefits of regular moderate aerobic exercise (walking, swimming, elliptical machine, cycling, etc.) for 30 min 5 days per week (150 min goal). Resistance training for 20 min twice weekly will also help build lean muscle mass, maintain bone mineral density, reduce body fat, and increase metabolic rate (helps you to burn calories more efficiently--even at rest). High intensity interval training-Alternatively, some new research suggest very short, intense bursts of activity for just 4 minutes per day 3-4 times/week may be as effective (or even beter) than longer, low to moderate exercise sessions. If this appeals to you, please try the following: Do 1 exercise such as jumping rope, running in place, Burpees or jump squats for 30-60 seconds as hard as you can. Use a timer to ensure you're at maximal intensity for the full minute. Do this for 60 seconds 4 separate times throughout the day. Alternate days that you do this taking a day off in between. Max 3-4 times a week. If you can go longer than 60 seconds you are not going hard enough! If you choose to do the 4 bursts consecutively you must do something less strenuous (to allow the muscles time to recover) for 4 minutes before you repeat the next 60 second burst. If you cannot complete the next set of 60 seconds then you did not wait long enough for your muscle to recover. However, there is a benefit to dividing the 4 minutes bursts throughout the day vs. all at once. Stress Management: 1) Please look into this Heart Rate Variability BioFeedback Tool (www.heartmath.org). You can see the research that has been put into this very valuable tool under the Resources and Research tabs. This can be used as an stella on your smart phone. You will need to buy a sensor that plugs right into the phone for about $100. First, get one of the Heart Math booklets off Honestly.com that fits your 'go to' emotion - Transforming Anger, Anxiety, Stress, Depression, or PTSD. Five minutes 3X a day is more effective than 15 minutes in one sitting. 2) A regular, daily meditation practice of at least 15-20 minutes will change your brain--as well as your genes! Preliminary studies demonstrate gene expression is modified in those who meditate regularly leading to down-regulation of pro-inflammatory genes. This results in reduced inflammation, as well as improvements in the body's response to stress via the hormone cortisol, in the intervention groups vs. the controls. Although more research is needed, these findings suggest a definite role for meditation in the treatment and prevention of chronic inflammatory conditions. Behavioral Health Therapist: If I recommended counseling or individual therapy, please schedule an individual appointment with our Functional Medicine Behavioral Health Therapist , LUDY Jackson, after your visit today. Health Coaching: Please consider scheduling with our [place] for Functional Medicine health coaches for a phone or virtual visit for accountability, goal setting and help with behavior record changer the next 6-8 weeks to be successful with your goals. [phone]. Smart phone apps to begin a meditative practice: Headspace (free for first 10 days) Insight Meditation Timer- (Free)-Great all-around stella to use for guided meditations of many different types and lengths or just to use as a tool to time and track your meditation practice. This is my absolute favorite! Calm- (Free) Walking Meditations-($1.99)- Get your walk AND meditation done together. A good way to start out for individuals who feel they just can't sit still to begin a meditative practice. Medications/Supplements Recommended: Medication orders placed this encounter Anne Marie WS 1265 ([employer]) sleep/calming/anxiety Si at bedtime - may also use 1 in AM for relaxation/anxiety Refill: 0 Melatonin-SR (Klaire/Prothera) 2mg bones/hormones/sleep/reflux/prostate Si by mouth 30 minutes before bed Refill: 3 PureLean Pure Pack (Pure Encapsulations) Sig: Take 1 packet daily with food. Ther-Biotic Complete Capsules (Klaire/Prothera) probiotic (FRIDGE) Sig: Take 1 capsule by mouth once daily. Refill: 0 WellBetX PGX Ultra Matrix (Natural Factors) Sig: Take 2 capsules with 8 ounces of water 5-10 minutes before meals. I recommend the supplements from the [facility] [employer] Store at [email or web address] as we have thoroughly evaluated the research and use only highest quality supplements. During the next 6-8 weeks you'll be working on your diet plan discussed with our injection molding machine offbearer, allowing for gentle detoxification and decreasing inflammation - while we are gathering your lab results and combining those with your complete history to formulate a very personalized treatment plan. LAB results: Due to the complexity of the testing performed, we are not able to review labs via Nandi Proteinst or over the phone, but please know, if any of your labs are critical we will contact you. Otherwise, we will review all your labs at your next visit. We will go over a lot of information during your follow up visit - so please be well-rested and you may want to bring someone with you, if possible. Also make sure to schedule with the injection molding machine offbearer (this will not happen automatically). Potential future labs: Any [employer] labs ordered take about 4 weeks to return. Do them as soon as possible so that we have the results before your next appointment. You can access them on the [employer] website and it can be beneficial if you review them prior to your next visit. [email or web address]. Read about NutrEval if this was ordered. Time spend with patient: I spent 60 minutes in the visit, with more than 50% of the time spent counseling in regards to above. . MD Anna Rosenbaum MD 06/30/2018 1:07 PM Signed Plan and Lifestyle Prescription Plan/Instructions/Resources: [facility] labs today 1. Gut healing // PGX capsules 1-2 prior to each meal, 3 times per day Pure lean pack while on your weight loss regimen Probiotic added 2. Stress reduction// Anxiety---> lavela capsule twice daily 3. Exercise is critical / walking 4. Sleep- take melatonin SR- with Lavela ---> 1/2 trazodone if needed Future Plans: food allegies Follow up: Please schedule a follow up visit with the following Caregivers: Provider: 12weeks and Flat Knitter: 6 weeks LIFESTYLE PRESCRIPTION Functional Nutrition: Elimination Diet--> renew diet Sleep: Sleep goal for most adults is a minimum of 7-9 hours nightly. Studies consistently show that less than 6 hours of sleep for even just a few nights can alter gene expression of over 700 different genes! This can lead to reduced immunity and altered hormone levels which can increase inflammation and cause weight gain, poor blood sugar regulation, memory problems and numerous other negative effects. Please make sleep a priority. Be very protective of your sleep time and find a routine that works for you. Your body (and mind) will thank you!!!! Sleep hygiene tips: Recommend no ?screen activity? at least 1 hour before bed (no TV, computer monitor, iPad, Steven, or Smart Phone usage). Sleep in a cool, dark room. No buzzing or binging objects in your bedroom except alarm clock. Try to get 7-8 hours of sleep per night. Exercise Prescription: Numerous studies confirm the benefits of regular moderate aerobic exercise (walking, swimming, elliptical machine, cycling, etc.) for 30 min 5 days per week (150 min goal). Resistance training for 20 min twice weekly will also help build lean muscle mass, maintain bone mineral density, reduce body fat, and increase metabolic rate (helps you to burn calories more efficiently--even at rest). High intensity interval training-Alternatively, some new research suggest very short, intense bursts of activity for just 4 minutes per day 3-4 times/week may be as effective (or even beter) than longer, low to moderate exercise sessions. If this appeals to you, please try the following: Do 1 exercise such as jumping rope, running in place, Burpees or jump squats for 30-60 seconds as hard as you can. Use a timer to ensure you're at maximal intensity for the full minute. Do this for 60 seconds 4 separate times throughout the day. Alternate days that you do this taking a day off in between. Max 3-4 times a week. If you can go longer than 60 seconds you are not going hard enough! If you choose to do the 4 bursts consecutively you must do something less strenuous (to allow the muscles time to recover) for 4 minutes before you repeat the next 60 second burst. If you cannot complete the next set of 60 seconds then you did not wait long enough for your muscle to recover. However, there is a benefit to dividing the 4 minutes bursts throughout the day vs. all at once. Stress Management: 1) Please look into this Heart Rate Variability BioFeedback Tool (www.heartmath.org). You can see the research that has been put into this very valuable tool under the Resources and Research tabs. This can be used as an stella on your smart phone. You will need to buy a sensor that plugs right into the phone for about $100. First, get one of the Heart Math booklets off Honestly.com that fits your 'go to' emotion - Transforming Anger, Anxiety, Stress, Depression, or PTSD. Five minutes 3X a day is more effective than 15 minutes in one sitting. 2) A regular, daily meditation practice of at least 15-20 minutes will change your brain--as well as your genes! Preliminary studies demonstrate gene expression is modified in those who meditate regularly leading to down-regulation of pro-inflammatory genes. This results in reduced inflammation, as well as improvements in the body's response to stress via the hormone cortisol, in the intervention groups vs. the controls. Although more research is needed, these findings suggest a definite role for meditation in the treatment and prevention of chronic inflammatory conditions. Behavioral Health Therapist: If I recommended counseling or individual therapy, please schedule an individual appointment with our Functional Medicine Behavioral Health Therapist , LUDY Jackson, after your visit today. Health Coaching: Please consider scheduling with our [place] for Functional Medicine health coaches for a phone or virtual visit for accountability, goal setting and help with behavior record changer the next 6-8 weeks to be successful with your goals. [phone]. Smart phone apps to begin a meditative practice: Headspace (free for first 10 days) Insight Meditation Timer- (Free)-Great all-around stella to use for guided meditations of many different types and lengths or just to use as a tool to time and track your meditation practice. This is my absolute favorite! Calm- (Free) Walking Meditations-($1.99)- Get your walk AND meditation done together. A good way to start out for individuals who feel they just can't sit still to begin a meditative practice. Medications/Supplements Recommended: Medication orders placed this encounter Anne Marie GARRETT 1265 ([employer]) sleep/calming/anxiety Si at bedtime - may also use 1 in AM for relaxation/anxiety Refill: 0 Melatonin-SR (Klaire/Prothera) 2mg bones/hormones/sleep/reflux/prostate Si by mouth 30 minutes before bed Refill: 3 PureLean Pure Pack (Pure Encapsulations) Sig: Take 1 packet daily with food. Ther-Biotic Complete Capsules (Klaire/Prothera) probiotic (FRIDGE) Sig: Take 1 capsule by mouth once daily. Refill: 0 WellBetX PGX Ultra Matrix (Natural Factors) Sig: Take 2 capsules with 8 ounces of water 5-10 minutes before meals. I recommend the supplements from the [facility] [employer] Living Store at [email or web address] as we have thoroughly evaluated the research and use only highest quality supplements. During the next 6-8 weeks you'll be working on your diet plan discussed with our injection molding machine offbearer, allowing for gentle detoxification and decreasing inflammation - while we are gathering your lab results and combining those with your complete history to formulate a very personalized treatment plan. LAB results: Due to the complexity of the testing performed, we are not able to review labs via Nandi Prote[employer] or over the phone, but please know, if any of your labs are critical we will contact you. Otherwise, we will review all your labs at your next visit. We will go over a lot of information during your follow up visit - so please be well-rested and you may want to bring someone with you, if possible. Also make sure to schedule with the injection molding machine offbearer (this will not happen automatically). Potential future labs: Any [employer] labs ordered take about 4 weeks to return. Do them as soon as possible so that we have the results before your next appointment. You can access them on the [employer] website and it can be beneficial if you review them prior to your next visit. [email or web address]. Read about NutrEval if this was ordered. 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] Other Visit Diagnoses:Moderate asthma without complication, unspecified whether persistent [J45.909] Essential hypertension [I10] BMI 33.0-33.9,adult [Z68.33] Order(s):C-REACTIVE ULTRA SEN [SQHSCRP] Order #: [id number] FUTURE HOMOCYSTEINE [SQHOMCYS] Order #: [id number] FUTURE HGB A1C [YAMMC0Y] Order #: [id number] FUTURE INSULIN ASSAY BLOOD [SQINSULN] Order #: [id number] FUTURE TRANSGLUTAMINASE IGA [SQTGIGA] Order #: [id number] FUTURE TRANSGLUTAMINASE IGG [SQTGIGG] Order #: [id number] FUTURE GLIADIN (DEAMIDATED) AB, IGG [SQGLIIGG] Order #: [id number] FUTURE GLIADIN (DEAMIDATED) AB, IGA [SQGLIIGA] Order #: [id number] FUTURE THYROID PEROXIDASE ANTIBODY BLOOD [SQMICRO] Order #: [id number] FUTURE THYROGLOBULIN AB [SQTGAB] Order #: [id number] FUTURE METHYLMALONIC ACID [SQMMA] Order #: [id number] FUTURE VITAMIN D 25 HYDROXY [SQVITD] Order #: [id number] FUTURE WellBetX PGX Ultra Matrix (Natural Factors)Take 2 capsules with 8 ounces of water 5-10 minutes before meals.Disp: Rfl: Anne Marie GARRETT 1265 ([employer]) sleep/calming/anxiety1 at bedtime - may also use 1 in AM for relaxation/anxietyDisp: Rfl: 0 PureLean Pure Pack (Pure Encapsulations)Take 1 packet daily with food.Disp: Rfl: Melatonin-SR (Klaire/Prothera) 2mg bones/hormones/sleep/reflux/prostate1 by mouth 30 minutes before bedDisp: Rfl: 3 Ther-Biotic Complete Capsules (Klaire/Prothera) probiotic (FRIDGE)Take 1 capsule by mouth once daily.Disp: Rfl: 0 Prescriptions as of 06/30/2018 Sig: ALPRAZOLAM 0.5 MG TABLET Take 1 tablet by mouth at bed* B-12 DOTS ORAL Take 3,000 Units by mouth onc* IBUPROFEN 600 MG TABLET Take 1 tablet by mouth every * INDAPAMIDE 1.25 MG TABLET Take 1.25 mg by mouth once da* CLARITIN ORAL Take 1 tablet by mouth daily * NASONEX NASAL Use 1 Earlimart in the nose once * VENLAFAXINE ER 150 MG CAPSULE* Take 150 mg by mouth once jodi* ACETAMINOPHEN 500 MG TABLET Take 2 tablets by mouth every* Patient not taking: Reported on 06/30/2018 ACYCLOVIR 400 MG TABLET Take 1 tablet by mouth twice * Patient not taking: Reported on 06/30/2018 PROVENTIL INHALATION Inhale 2 Puffs as instructed * CALCIUM + D ORAL Take 1 tablet by mouth once d* MUCINEX D ORAL Take by mouth twice daily. HYDROCORTISONE 2.5 % TOPICAL * Apply 1 application to affect* Patient not taking: Reported on 06/30/2018 OTC NUTRITIONAL SUPPLEMENT 1 at bedtime - may also use 1* OTC NUTRITIONAL SUPPLEMENT 1 by mouth 30 minutes before * MONTELUKAST 10 MG TABLET Take 1 tablet by mouth daily * OXYCODONE-ACETAMINOPHEN 5 MG-* Take 1 tablet by mouth every * Patient not taking: Reported on 02/17/2018 OTC NUTRITIONAL SUPPLEMENT Take 1 packet daily with food. OTC NUTRITIONAL SUPPLEMENT Take 1 capsule by mouth once * OTC NUTRITIONAL SUPPLEMENT Take 2 capsules with 8 ounces* Problem List As Of Date 06/30/2018 Noted Resolved Asthma [J45.909] INVALID FOR* Hypertension [I10] INVALID FOR* Impaired fasting glucose [R73.01] INVALID FOR*11/07/2013 Other malaise and fatigue [R53.81, R53.83] INVALID FOR* Prolapse of vaginal rondon [N81.10] INVALID FOR* Female stress incontinence [N39.3] INVALID FOR* Prolapse of vaginal vault after hysterectomy [N*INVALID FOR* Bile duct calculus without cholecystitis and no*INVALID FOR* More... Biliary colic [K80.50] INVALID FOR* More... Other instructions from your clinician: Plan and Lifestyle Prescription Plan/Instructions/Resources: [facility]M labs today 1. Gut healing // PGX capsules 1-2 prior to each meal, 3 times per day Pure lean pack while on your weight loss regimen Probiotic added 2. Stress reduction// Anxiety---> lavela capsule twice daily 3. Exercise is critical / walking 4. Sleep- take melatonin SR- with Lavela ---> 1/2 trazodone if needed Future Plans: food allegies Follow up: Please schedule a follow up visit with the following Caregivers: Provider: 12weeks and Flat Knitter: 6 weeks LIFESTYLE PRESCRIPTION Functional Nutrition: Elimination Diet--> renew diet Sleep: Sleep goal for most adults is a minimum of 7-9 hours nightly. Studies consistently show that less than 6 hours of sleep for even just a few nights can alter gene expression of over 700 different genes! This can lead to reduced immunity and altered hormone levels which can increase inflammation and cause weight gain, poor blood sugar regulation, memory problems and numerous other negative effects. Please make sleep a priority. Be very protective of your sleep time and find a routine that works for you. Your body (and mind) will thank you!!!! Sleep hygiene tips: Recommend no ?screen activity? at least 1 hour before bed (no TV, computer monitor, iPad, Stevne, or Smart Phone usage). Sleep in a cool, dark room. No buzzing or binging objects in your bedroom except alarm clock. Try to get 7-8 hours of sleep per night. Exercise Prescription: Numerous studies confirm the benefits of regular moderate aerobic exercise (walking, swimming, elliptical machine, cycling, etc.) for 30 min 5 days per week (150 min goal). Resistance training for 20 min twice weekly will also help build lean muscle mass, maintain bone mineral density, reduce body fat, and increase metabolic rate (helps you to burn calories more efficiently--even at rest). High intensity interval training-Alternatively, some new research suggest very short, intense bursts of activity for just 4 minutes per day 3-4 times/week may be as effective (or even beter) than longer, low to moderate exercise sessions. If this appeals to you, please try the following: Do 1 exercise such as jumping rope, running in place, Burpees or jump squats for 30-60 seconds as hard as you can. Use a timer to ensure you're at maximal intensity for the full minute. Do this for 60 seconds 4 separate times throughout the day. Alternate days that you do this taking a day off in between. Max 3-4 times a week. If you can go longer than 60 seconds you are not going hard enough! If you choose to do the 4 bursts consecutively you must do something less strenuous (to allow the muscles time to recover) for 4 minutes before you repeat the next 60 second burst. If you cannot complete the next set of 60 seconds then you did not wait long enough for your muscle to recover. However, there is a benefit to dividing the 4 minutes bursts throughout the day vs. all at once. Stress Management: 1) Please look into this Heart Rate Variability BioFeedback Tool (www.heartmath.org). You can see the research that has been put into this very valuable tool under the Resources and Research tabs. This can be used as an stella on your smart phone. You will need to buy a sensor that plugs right into the phone for about $100. First, get one of the Heart Math booklets off Honestly.com that fits your 'go to' emotion - Transforming Anger, Anxiety, Stress, Depression, or PTSD. Five minutes 3X a day is more effective than 15 minutes in one sitting. 2) A regular, daily meditation practice of at least 15- 20 minutes will change your brain--as well as your genes! Preliminary studies demonstrate gene expression is modified in those who meditate regularly leading to down-regulation of pro-inflammatory genes. This results in reduced inflammation, as well as improvements in the body's response to stress via the hormone cortisol, in the intervention groups vs. the controls. Although more research is needed, these findings suggest a definite role for meditation in the treatment and prevention of chronic inflammatory conditions. Behavioral Health Therapist: If I recommended counseling or individual therapy, please schedule an individual appointment with our Functional Medicine Behavioral Health Therapist , LUDY Jackson, after your visit today. Health Coaching: Please consider scheduling with our [place] for Functional Medicine health coaches for a phone or virtual visit for accountability, goal setting and help with behavior record changer the next 6-8 weeks to be successful with your goals. [phone]. Smart phone apps to begin a meditative practice: Headspace (free for first 10 days) Insight Meditation Timer- (Free)-Great all-around stella to use for guided meditations of many different types and lengths or just to use as a tool to time and track your meditation practice. This is my absolute favorite! Calm- (Free) Walking Meditations-($1.99)- Get your walk AND meditation done together. A good way to start out for individuals who feel they just can't sit still to begin a meditative practice. Medications/Supplements Recommended: Medication orders placed this encounter Anne Marie WS 1265 ([employer]) sleep/calming/anxiety Si at bedtime - may also use 1 in AM for relaxation/anxiety Refill: 0 Melatonin-SR (Klaire/Prothera) 2mg bones/hormones/sleep/reflux/prostate Si by mouth 30 minutes before bed Refill: 3 PureLean Pure Pack (Pure Encapsulations) Sig: Take 1 packet daily with food. Ther-Biotic Complete Capsules (Klaire/Prothera) probiotic (FRIDGE) Sig: Take 1 capsule by mouth once daily. Refill: 0 WellBetX PGX Ultra Matrix (Natural Factors) Sig: Take 2 capsules with 8 ounces of water 5- 10 minutes before meals. I recommend the supplements from the [facility] Living Store at [email or web address] as we have thoroughly evaluated the research and use only highest quality supplements. During the next 6-8 weeks you'll be working on your diet plan discussed with our injection molding machine offbearer, allowing for gentle detoxification and decreasing inflammation - while we are gathering your lab results and combining those with your complete history to formulate a very personalized treatment plan. LAB results: Due to the complexity of the testing performed, we are not able to review labs via PLDT or over the phone, but please know, if any of your labs are critical we will contact you. Otherwise, we will review all your labs at your next visit. We will go over a lot of information during your follow up visit - so please be well-rested and you may want to bring someone with you, if possible. Also make sure to schedule with the injection molding machine offbearer (this will not happen automatically). Potential future labs: Any [facility] labs ordered take about 4 weeks to return. Do them as soon as possible so that we have the results before your next appointment. You can access them on the [employer] website and it can be beneficial if you review them prior to your next visit. [email or web address]. Read about NutrEval if this was ordered. Prescriptions ordered this encounter Disp Refills Start End OTC NUTRITIONAL SUPPLEMENT 06/30/2018 Class: OTC Sig: Take 2 capsules with 8 ounces of water 5-10 minutes before meals. OTC NUTRITIONAL SUPPLEMENT 0 06/30/2018 Class: OTC Si at bedtime - may also use 1 in AM for relaxation/anxiety OTC NUTRITIONAL SUPPLEMENT 06/30/2018 Class: OTC Sig: Take 1 packet daily with food. OTC NUTRITIONAL SUPPLEMENT 3 06/30/2018 Class: OTC Si by mouth 30 minutes before bed OTC NUTRITIONAL SUPPLEMENT 0 06/30/2018 Class: OTC Route: ORAL Sig: Take 1 capsule by mouth once daily. Encounter Status:Closed by ANNA LICEA on 06/30/18 Observed: 06/14/2018 Status: F Source: [place] CULTURE, URINE 4:15 PM [facility] REPOSITORY Urine Culture ORGANISM 1: Enterobacter aerogenes [place] Count 11,000-25,000 Enterobacter aerogenes: REACTION Amoxacillin/Clavulanic Acid $ >=32 R Cefazolin $ >=64 R Cefepime $ <=1 S Ceftriaxone $ <=1 S Ciprofloxacin $ <=0.25 S Ertapenim $$$ <=0.5 S Gentamicin $ <=1 S Imipenem *NF <=0.25 S Levofloxacin $ <=0.12 S Nitrofurantoin $ 64 I Piperacillin/Tazobactam $$ <=4 S Tobramycin $ <=1 S Trimethoprim/Sulfametho $ <=20 S (NF) indicates non-formulary drug at [facility]. Approval by Infectious Disease Specialist required before non-formulary drugs may be ordered and/or dispensed. Performed By: #### [id number] #### [facility] [address] [place], [address] PROGRESS Observed: 03/16/2018 Status: COMPLETED Source: [place] 12:55 PM [facility] REPOSITORY HNO ID: [id number] Author: Kori (Rn) ESEQUIEL Gonzalez Service: (none) Author Type: Registered Nurse Type: Progress Notes Filed: 03/16/2018 1:01 PM Note Text: Dylan Syed MD-[facility] Care Coordination Note Call to member to update progress in [facility] program. 2 BMI goal set based on weight documented on 04/16/17 of 173 lbs. Weight goal to reach between 03/03/18 -04/18/18 of 162 lbs Reminded member of established weight goal, deadline and of the importance of reporting a final documented weight to me. Current diet/nutrition- she is struggling trying to lose weight. She is not eating a lot. She will discuss with her doctor Current exercise routine- she is exercising and tracking steps Goal for LDL level is 130 or below. Cholesterol, Total (mg/dL) Date Value 01/26/2017 210 02/12/2016 195 HDL Cholesterol (mg/dL) Date Value 01/26/2017 57 02/12/2016 50 LDL Cholesterol (mg/dL) Date Value 01/26/2017 125 02/12/2016 116 Triglyceride (mg/dL) Date Value 01/26/2017 140 02/12/2016 143 Is member currently being treated for Hyperlipidemia? No If yes, is lipid panel done annually? Yes Goal for blood pressure is 140/90 or below. Last 3 Encounter BP Readings: Date: BP: 01/30/2017 124/70 01/21/2017 112/76 11/19/2016 120/72 Is member currently being treated for Hypertension No Has there been a Basic Metabolic Panel done within the last year?No Glucose (mg/dL) Date Value 03/10/2018 90 Potassium (mmol/L) Date Value 03/10/2018 3.7 Sodium (mmol/L) Date Value 03/10/2018 143 Chloride (mmol/L) Date Value 03/10/2018 101 CO2 (mmol/L) Date Value 03/10/2018 29 Creatinine (mg/dL) Date Value 03/10/2018 1.34 BUN (mg/dL) Date Value 03/10/2018 18 Anion Gap (mmol/L) Date Value 03/10/2018 13 Calcium (mg/dL) Date Value 03/10/2018 9.7 Medication Refill Adherence- n/a for this program HEALTH MAINTENANCE ANNUAL PCP TEAM CHRONIC DISEASE VISIT due on 1977 BLOOD PRESSURE CONTROLLED due on 1977 PAP EVERY 5 YEARS due on 1989 HPV EVERY 5 YEARS due on 1989 MAMMOGRAM due on 1999 COLORECTAL CANCER SCREENING,SEE MODIFIER due on 2009 DTAP,TDAP,TD(2 - Td) due on 11/12/2017 INFLUENZA(1) due on 03/20/2018 Depression Screening- During the last month or since our last conversation, have you often been bothered by feeling down, depressed or hopeless?No During the last month or since our last conversation, have you been bothered by little interest or pleasure in doing things?No (if answer yes, please complete extended depression screening) Asked member to reach out to me with any questions before next call if needed. Kori Gonzalez RN March 16, 2018 12:56 PM PROGRESS Observed: 03/16/2018 Status: COMPLETED Source: [place] 9:22 AM [facility] [place] REPOSITORY O ID: [id number] Author: Jayy Cabrera Service: (none) Author Type: Nurse Practitioner Type: Progress Notes Filed: 03/17/2018 11:52 AM Note Text: Telemedicine Visit - Distance Health Virtual Visit Note Patient seen on ethology Online platform. Location of patient: [place] History of Present Illness Cassandra Mejia is a 57 year old old female presenting with a rash. History was obtained from: patient The rash is on the torso for the past 2 day(s) and is constant. The rash is described as itchy. The prior dermatologic history includes no rash like this. The patient reports no new exposures The patient also complains of no other pertinent symptoms. The patient denies no other pertinent symptoms. The patient has tried monistat for relief. PAST MEDICAL HISTORY Diagnosis Date - Allergic rhinitis - Asthma - Depression - Essential hypertension - GERD (gastroesophageal reflux disease) - Hiatal hernia - UTI (lower urinary tract infection) PAST SURGICAL HISTORY Procedure Laterality Date - DANDC, DIAG AND/OR THERAPEUTIC 1999, 2000 Dilation AND curettage x2 - LAP CHOLECYSTECT/CHOLANGIOGRAPHY 02/02/2017 normal IOC - PAST SURGICAL HISTORY OF 03/11/2016 Right iliococcygeus vaginal vault suspension, Anterior colporrhaphy, René transobturator midurethral sling, Rectocele repair with perineorrhaphy, cystoscopy - REMOVAL OF TONSILS,<11 Y/O Tonsillectomy - VAGINAL HYSTERECTOMY 2008 Hysterectomy, vaginal, ovaries remain FAMILY HISTORY Problem Relation Age of Onset - Heart Mother Thoracic aneurysm - Heart Father - Hypertension Father - Diabetes Father - Stroke Father - Cancer Father testicular - Kidney Disease Other Nephew, one kidney - Coronary Artery Disease Brother - Asthma Brother Social History Marital status: Spouse name: Years of education: Number of children: 2 Occupational History Occupation Employer Comment [employer] Social History Main Topics Smoking status: Never Smoker Smokeless tobacco: Never Used Alcohol use: Yes Comment: social Drug use: No Sexual activity: Yes Partners with: Male ALLERGIES Allergen Reactions - Animal Dander Other: See Comments congestion, sneezing, runny nose - Dust Other: See Comments stuffy nose - Pollen Other: See Comments stuffy nose, congestion, watery eyes Mold also terbinafine HCl (LAMISIL) 250 mg tablet Take 1 tablet by mouth once daily. oxyCODONE-acetaminophen (PERCOCET) 5-325 mg tablet Take 1 tablet by mouth every 6 hours as needed for Pain. indapamide (LOZOL) 1.25 mg tablet Take 1.25 mg by mouth once daily. GUAIFENESIN/PSEUDOEPHEDRNE HCL (MUCINEX D ORAL) Take by mouth twice daily. ibuprofen (MOTRIN) 600 mg tablet Take 1 tablet by mouth every 6 hours as needed for Pain. Take with food. acetaminophen (TYLENOL) 500 mg tablet Take 2 tablets by mouth every 8 hours as needed. CYANOCOBALAMIN, VITAMIN B-12, (B-12 DOTS ORAL) Take 3,000 Units by mouth once daily. venlafaxine XR (EFFEXOR XR) 150 mg 24 hr capsule Take 150 mg by mouth once daily. acyclovir (ZOVIRAX) 400 mg tablet Take 1 tablet by mouth twice daily. ALPRAZolam (XANAX) 0.5 mg tablet Take 1 tablet by mouth at bedtime as needed. hydrocortisone 2.5 % cream Apply 1 application to affected area twice daily. Apply to affected area sparingly. montelukast (SINGULAIR) 10 mg tablet Take 1 tablet by mouth daily at bedtime. LORATADINE (CLARITIN ORAL) Take 1 tablet by mouth daily at bedtime. MOMETASONE FUROATE (NASONEX NASAL) Use 1 Earlimart in the nose once daily. CALCIUM CARBONATE/VITAMIN D3 (CALCIUM + D ORAL) Take 1 tablet by mouth once daily. ALBUTEROL SULFATE (PROVENTIL INHALATION) Inhale 2 Puffs as instructed as needed. Video Exam (Examination performed via Video enabled technology) General appearance: Alert, oriented, pleasant, in NAD :Yes Ill appearing :No Lethargic appearing :No Respiratory distress :No Skin: erythematous excoriated plaques with indistinct borders v tinea linear streaks of erythematous papules with/without pruritic small vesicles of erythema along under bilat breasts ASSESSMENT/PLAN: 1. Tinea corporis - ICD9: 110.5, ICD10: B35.4 Looks fungal under breasts but may just be contact Did not start terbenifine pills for fungal nails Recently had toe fungus Will start Advised gold escamilla and If no improvement see PCP avoid OTC cream and use dove soap Wear cotton clothing Plan reviewed in detail and Cassandra Mejia verbalizes understanding. no PCP - Dry skin care instructions reviewed - Use mild soap like Dove, Aveeno or Cetaphil - Limit shower/bath to less than 15 minutes with warm, not hot, water - BID use of recommended emollients such as Cetaphil, Eucerin Plus, Aveeno, Aquaphor - Do not scratch and break the skin; keep area clean and dry - Use cool compresses as needed - Avoid exposure to irritant if known - Follow up if symptoms persist or worsen. - Red flags discussed for immediate in person care - All questions answered Jayy Cabrera APRN.[employer] If you let us know who your primary care provider is, we will send them a notification of today?s visit through our electronic medical records system. Since not all providers have access to our notifications, we strongly encourage you to share the following record of today?s visit with your primary care provider at your next visit. This will help in providing you the best care. ABIGAIL Observed: 03/16/2018 Status: COMPLETED Source: [place] 12:00 AM [facility] REPOSITORY Patient Outreach (MNGDCR) CASSANDRA MEJIA ([id number]) 1960 F Date Time Provider Department 03/16/18 KORI GONZALEZ (RN) [facility] [place] During your visit today, we recorded the following information about you: Kori Gonzalez RN, RN 03/16/2018 1:01 PM Signed Dylan Syed MD-[facility] Care Coordination Note Call to member to update progress in [facility] program. 2 BMI goal set based on weight documented on 04/16/17 of 173 lbs. Weight goal to reach between 03/03/18 -04/18/18 of 162 lbs Reminded member of established weight goal, deadline and of the importance of reporting a final documented weight to me. Current diet/nutrition- she is struggling trying to lose weight. She is not eating a lot. She will discuss with her doctor Current exercise routine- she is exercising and tracking steps Goal for LDL level is 130 or below. Cholesterol, Total (mg/dL) Date Value 01/26/2017 210 02/12/2016 195 HDL Cholesterol (mg/dL) Date Value 01/26/2017 57 02/12/2016 50 LDL Cholesterol (mg/dL) Date Value 01/26/2017 125 02/12/2016 116 Triglyceride (mg/dL) Date Value 01/26/2017 140 02/12/2016 143 Is member currently being treated for Hyperlipidemia? No If yes, is lipid panel done annually? Yes Goal for blood pressure is 140/90 or below. Last 3 Encounter BP Readings: Date: BP: 01/30/2017 124/70 01/21/2017 112/76 11/19/2016 120/72 Is member currently being treated for Hypertension No Has there been a Basic Metabolic Panel done within the last year?No Glucose (mg/dL) Date Value 03/10/2018 90 Potassium (mmol/L) Date Value 03/10/2018 3.7 Sodium (mmol/L) Date Value 03/10/2018 143 Chloride (mmol/L) Date Value 03/10/2018 101 CO2 (mmol/L) Date Value 03/10/2018 29 Creatinine (mg/dL) Date Value 03/10/2018 1.34 BUN (mg/dL) Date Value 03/10/2018 18 Anion Gap (mmol/L) Date Value 03/10/2018 13 Calcium (mg/dL) Date Value 03/10/2018 9.7 Medication Refill Adherence- n/a for this program HEALTH MAINTENANCE ANNUAL PCP TEAM CHRONIC DISEASE VISIT due on 1977 BLOOD PRESSURE CONTROLLED due on 1977 PAP EVERY 5 YEARS due on 1989 HPV EVERY 5 YEARS due on 1989 MAMMOGRAM due on 1999 COLORECTAL CANCER SCREENING,SEE MODIFIER due on 2009 DTAP,TDAP,TD(2 - Td) due on 11/12/2017 INFLUENZA(1) due on 03/20/2018 Depression Screening- During the last month or since our last conversation, have you often been bothered by feeling down, depressed or hopeless?No During the last month or since our last conversation, have you been bothered by little interest or pleasure in doing things?No (if answer yes, please complete extended depression screening) Asked member to reach out to me with any questions before next call if needed. Kori Gonzalez RN March 16, 2018 12:56 PM Allergies As of Date: 03/16/2018 Noted Allergy Reaction ANIMAL DANDER 11/12/2012 14 - Other: See Comments Comments: congestion, sneezing, runny nose DUST 11/12/2012 14 - Other: See Comments Comments: stuffy nose POLLEN 11/12/2012 14 - Other: See Comments Comments: stuffy nose, congestion, watery eyes Mold also Date Reviewed: 02/17/2018 Reviewed by: Tracee Schuler RN - Fully Assessed Reason for Visit: Care Coordination [3491] Weight Problem [121] Prescriptions as of 03/16/2018 Sig: TERBINAFINE HCL 250 MG TABLET Take 1 tablet by mouth once d* OXYCODONE-ACETAMINOPHEN 5 MG-* Take 1 tablet by mouth every * Patient not taking: Reported on 02/17/2018 INDAPAMIDE 1.25 MG TABLET Take 1.25 mg by mouth once da* MUCINEX D ORAL Take by mouth twice daily. IBUPROFEN 600 MG TABLET Take 1 tablet by mouth every * ACETAMINOPHEN 500 MG TABLET Take 2 tablets by mouth every* B-12 DOTS ORAL Take 3,000 Units by mouth onc* VENLAFAXINE ER 150 MG CAPSULE* Take 150 mg by mouth once jodi* ACYCLOVIR 400 MG TABLET Take 1 tablet by mouth twice * ALPRAZOLAM 0.5 MG TABLET Take 1 tablet by mouth at bed* HYDROCORTISONE 2.5 % TOPICAL * Apply 1 application to affect* MONTELUKAST 10 MG TABLET Take 1 tablet by mouth daily * CLARITIN ORAL Take 1 tablet by mouth daily * NASONEX NASAL Use 1 Earlimart in the nose once * CALCIUM + D ORAL Take 1 tablet by mouth once d* PROVENTIL INHALATION Inhale 2 Puffs as instructed * Problem List As Of Date 03/16/2018 Noted Resolved Asthma [J45.909] INVALID FOR* Hypertension [I10] INVALID FOR* Impaired fasting glucose [R73.01] INVALID FOR*11/07/2013 Other malaise and fatigue [R53.81, R53.83] INVALID FOR* Prolapse of vaginal rondon [N81.10] INVALID FOR* Female stress incontinence [N39.3] INVALID FOR* Prolapse of vaginal vault after hysterectomy [N*INVALID FOR* Bile duct calculus without cholecystitis and no*INVALID FOR* More... Biliary colic [K80.50] INVALID FOR* More... Encounter Status:Closed by KORI GONZALEZ on 03/16/18 COMP METABOLIC PANEL Collected: 03/10/2018 Status: F Source: [place] 8:18 AM CLINIC REFERENCE REPOSITORY TYPE CODE TESTS RESULT OUT OF REFERENCE UNITS RANGE LAB TP(LOINC) 6.3-8.0 g/dL Protein, Total 6.5 LAB ALB(LOINC) 3.9-4.9 g/dL Albumin 4.2 LAB CA(LOINC) 8.5-10.2 mg/dL Calcium, Total 9.7 LAB TBIL(LOINC 0.2-1.3 mg/dL ) Bilirubin, Total 0.4 LAB ALKP(LOINC 32-117 U/L ) Alkaline Phosphatase 46 LAB AST(LOINC) 13-35 U/L AST 31 LAB GLU(LOINC) 74-99 mg/dL Glucose 90 LAB BUN(LOINC) 7-21 mg/dL BUN 18 LAB CRET(LOINC 0.58-0.96 mg/dL ) Creatinine High 1.34 LAB NA(LOINC) 136-144 mmol/L Sodium 143 LAB K(LOINC) 3.7-5.1 mmol/L Potassium 3.7 LAB CL(LOINC) 97-105 mmol/L Chloride 101 LAB CO2(LOINC) 22-30 mmol/L CO2 29 LAB AGAP(LOINC 9-18 mmol/L ) Anion Gap 13 LAB ALT(LOINC) 7-38 U/L ALT 37 LAB GFRAA(LOIN C) eGFR- 49 Amer. LAB GFRNAA(ESTRADA . NC) eGFR-All Other Races 41 Performed By: #### CMP #### [facility] Routine Lab [address] [place], [place] [address] CORTISOL, FREE Collected: 03/10/2018 Status: F Source: [place] 8:18 AM CLINIC REFERENCE REPOSITORY TYPE CODE TESTS RESULT OUT OF REFERENCE UNITS RANGE LAB CORTFR(LOIN ug/dL C) Free Cortisol 0.56 Performed By: #### CMP #### [facility] Routine Lab [address] [place], [place] [address] Observed: 02/17/2018 Status: F Source: [place] FUN CUL [facility]IR [facility] 8:55 PM [facility] NLS REPOSITORY Sp. Request/Comment: - Specimen received in sterile container. Culture Result - Rare Swetha parapsilosis --> ABNORMAL ALERT No Dermatophytes isolated after 28 days. Performed By: #### ACFSC #### [facility] [address] [id number] HEPATIC FUNCTN PANEL Collected: 02/17/2018 Status: F Source: [place] 3:48 PM [facility] REPOSITORY TYPE CODE TESTS RESULT OUT OF REFERENCE UNITS RANGE LAB ALB 3.9-4.9 g/dL Albumin 3.9 LAB TBIL 0.2-1.3 mg/dL Bilirubin, Total 0.2 LAB CBIL <0.2 mg/dL Bilirubin,Conjuga <0.2 ashley LAB ALKP 32-117 U/L Alkaline Phosphatase 54 LAB AST 13-35 U/L AST 35 LAB ALT 7-38 U/L ALT 35 LAB TP 6.3-8.0 g/dL Low Protein, Total 5.5 Performed By: #### HFP #### [facility] [address] [address] CNOV Observed: 02/17/2018 Status: COMPLETED Source: [place] 2:40 PM [facility] REPOSITORY Office Visit (PODIWS) CASSANDRA MEJIA ([id number]) 1960 F Date Time Provider Department 02/17/18 2:40 PM ERIC NAYLOR PODEROSS During your visit today, we recorded the following information about you: Eric Naylor DPM 02/17/2018 11:23 PM Signed ? Eric Naylor DPM Department of Podiatry [address] [facility] [address] Dept: [phone] Dept 02/17/2018 Initial Podiatric Office Visit: HPI: Cassandra Mejia is a 57 year old female. Patient presents with:Bilateral onychomycosis. Patient has no complaints of pain. She has tried Ruslan's and tea tree oil and neither has helped. PCP: Dylan Syed MD PAST MEDICAL HISTORY Diagnosis Date - Allergic rhinitis - Asthma - Depression - Essential hypertension - GERD (gastroesophageal reflux disease) - Hiatal hernia - UTI (lower urinary tract infection) Current Outpatient Prescriptions: indapamide (LOZOL) 1.25 mg tablet Take 1.25 mg by mouth once daily. guaiFENesin (MUCINEX) 600 mg 12 hr tablet Take 2 tablets by mouth twice daily. GUAIFENESIN/PSEUDOEPHEDRNE HCL (MUCINEX D ORAL) Take by mouth twice daily. ibuprofen (MOTRIN) 600 mg tablet Take 1 tablet by mouth every 6 hours as needed for Pain. Take with food. acetaminophen (TYLENOL) 500 mg tablet Take 2 tablets by mouth every 8 hours as needed. CYANOCOBALAMIN, VITAMIN B-12, (B-12 DOTS ORAL) Take 3,000 Units by mouth once daily. lansoprazole (PREVACID) 30 mg capsule Take 30 mg by mouth once daily. venlafaxine XR (EFFEXOR XR) 150 mg 24 hr capsule Take 150 mg by mouth once daily. acyclovir (ZOVIRAX) 400 mg tablet Take 1 tablet by mouth twice daily. ALPRAZolam (XANAX) 0.5 mg tablet Take 1 tablet by mouth at bedtime as needed. hydrocortisone 2.5 % cream Apply 1 application to affected area twice daily. Apply to affected area sparingly. montelukast (SINGULAIR) 10 mg tablet Take 1 tablet by mouth daily at bedtime. LORATADINE (CLARITIN ORAL) Take 1 tablet by mouth daily at bedtime. MOMETASONE FUROATE (NASONEX NASAL) Use 1 Earlimart in the nose once daily. CALCIUM CARBONATE/VITAMIN D3 (CALCIUM + D ORAL) Take 1 tablet by mouth once daily. oxyCODONE-acetaminophen (PERCOCET) 5-325 mg tablet Take 1 tablet by mouth every 6 hours as needed for Pain. (Patient not taking: Reported on 02/17/2018 ) LIOTHYRONINE SODIUM (CYTOMEL ORAL) Take 1.25 mg by mouth once daily. lisinopril (PRINIVIL) 10 mg tablet Take 10 mg by mouth once daily. Zolpidem (AMBIEN CR) 12.5 mg CR tablet Take 12.5 mg by mouth at bedtime as needed. topiramate (TOPAMAX) 200 mg tablet Take 600 mg by mouth once daily. ALBUTEROL SULFATE (PROVENTIL INHALATION) Inhale 2 Puffs as instructed as needed. No current facility-administered medications for this visit. ALLERGIES Allergen Reactions - Animal Dander Other: See Comments congestion, sneezing, runny nose - Dust Other: See Comments stuffy nose - Pollen Other: See Comments stuffy nose, congestion, watery eyes Mold also PAST SURGICAL HISTORY Procedure Laterality Date - DANDC, DIAG AND/OR THERAPEUTIC 1999, 2000 Dilation AND curettage x2 - LAP CHOLECYSTECT/CHOLANGIOGRAPHY 02/02/2017 normal IOC - PAST SURGICAL HISTORY OF 03/11/2016 Right iliococcygeus vaginal vault suspension, Anterior colporrhaphy, René transobturator midurethral sling, Rectocele repair with perineorrhaphy, cystoscopy - REMOVAL OF TONSILS,<11 Y/O Tonsillectomy - VAGINAL HYSTERECTOMY 2008 Hysterectomy, vaginal, ovaries remain FAMILY HISTORY Problem Relation Age of Onset - Heart Mother Thoracic aneurysm - Heart Father - Hypertension Father - Diabetes Father - Stroke Father - Cancer Father testicular - Kidney Disease Other Nephew, one kidney - Coronary Artery Disease Brother - Asthma Brother Social History Marital status: Spouse name: Years of education: Number of children: 2 Occupational History Occupation Employer Comment [employer] Social History Main Topics Smoking status: Never Smoker Smokeless tobacco: Never Used Alcohol use: Yes Comment: social Drug use: No Sexual activity: Yes Partners with: Male REVIEW OF SYSTEMS: CONSTITUTIONAL: No fevers, chills, nightsweats, unintended weight loss HEENT: Denies frequent or severe heaches, nasal congestion/sinus symptoms, problematic allergy problems. EYES: No diplopia or blurry vision. CARDIOVASCULAR: No chest pain, dyspnea, palpitations, orthopnea, PND, ankle edema. PULM: No dyspnea, unexplained cough. GI: No dysphagia/odynophagia, problematic reflux, constipation, diarrhea, changes in stool habits, hematochezia, melena. : No new urinary complaints, including dysuria, gross hematuria or pyuria. NEURO: No new balance problems, peripheral weakness/paresthesias or numbness of concern. MUSC-SKEL: No new joint pain, swelling, or erythema. PSY: No concerns regarding depression, anxiety or panic. INTEGUMENTARY: b/l hallux toenail discoloration Physical Exam: Constitutional: Pt is a well developed 57 year old female who is alert, oriented and cooperative Eyes: Following during examination. No redness or drainage. Respiratory: RR normal and nonlabored. Even breathing. No evidence of distress or shortness of breath. Psychology: Patient is engaged during conversation. Normal affect and mood. Does not appear depressed or anxious during encounter. Vascular: Dorsalis pedis and posterior tibial pulses palpable as b/l Capillary Fill time < 5 seconds to digits 1-5 b/l Skin temperature warm to warm proximal to distal b/l Hair growth present to digits Neurological: intact light touch/epicritic sensation Vibratory sensation intact to hallux b/l Dermatological: b/l hallux toenail is discolored yellow and thick. No callus present to b/l feet. No open sores noted. Musculoskeletal/Orthopaedic: Patient has no pain to palpation of b/l feet Foot type is neutral structurally AJ ROM is full with knee extended and flexed 1st MPJ is full when loaded and no pain or crepitus are noted with ROM. MTJ, STJ are full and free of pain and crepitus. +5/5 muscle strength dorsiflexion, plantarflexion, inversion, eversion b/l Radiographs: n/a ASSESSMENT: (B35.1) Onychomycosis (primary encounter diagnosis) PLAN: 1. History and physical examination performed. 2. Patient was examined and informed of current findings 3. Discussed toenail discoloration. Discussed fungal vs trauma etiology. If fungus, discussed topical creams ,po lamisil, laser vs removal. Patient wishes to try lamisil. Discussed r/b/a to lamisil. She has elected to pursue lamisil pending hepatic panel 4. A fungal culture was obtained of toenail. Patient informed that fungal culture may be negative and if this does occur, lamisil may not result in resolution. She understands this. 5. Will notfiy her of hepatic panel and fungal culture. 6. She will need repeat hepatic panel 6 weeks after starting lamisil. Eric Naylor DPM Referring Provider: SELF [200] Allergies As of Date: 02/17/2018 Noted Allergy Reaction ANIMAL DANDER 11/12/2012 14 - Other: See Comments Comments: congestion, sneezing, runny nose DUST 11/12/2012 14 - Other: See Comments Comments: stuffy nose POLLEN 11/12/2012 14 - Other: See Comments Comments: stuffy nose, congestion, watery eyes Mold also Date Reviewed: 02/17/2018 Reviewed by: Tracee Schuler RN - Fully Assessed Reason for Visit: New Patient [172] Primary Visit Diagnosis:Onychomycosis [B35.1] Order(s):HEPATIC FUNCTION PNL [[facility]] Order #: [id number] FUTURE FUNGAL CULTURE HAIR,SKIN,NAILS [[facility]] Order #: [id number]. #:[id number] Prescriptions as of 02/17/2018 Sig: INDAPAMIDE 1.25 MG TABLET Take 1.25 mg by mouth once da* GUAIFENESIN ER 600 MG TABLET,* Take 2 tablets by mouth twice* MUCINEX D ORAL Take by mouth twice daily. IBUPROFEN 600 MG TABLET Take 1 tablet by mouth every * ACETAMINOPHEN 500 MG TABLET Take 2 tablets by mouth every* B-12 DOTS ORAL Take 3,000 Units by mouth onc* LANSOPRAZOLE 30 MG CAPSULE,DE* Take 30 mg by mouth once hieu* VENLAFAXINE ER 150 MG CAPSULE* Take 150 mg by mouth once jodi* ACYCLOVIR 400 MG TABLET Take 1 tablet by mouth twice * ALPRAZOLAM 0.5 MG TABLET Take 1 tablet by mouth at bed* HYDROCORTISONE 2.5 % TOPICAL * Apply 1 application to affect* MONTELUKAST 10 MG TABLET Take 1 tablet by mouth daily * CLARITIN ORAL Take 1 tablet by mouth daily * NASONEX NASAL Use 1 Earlimart in the nose once * CALCIUM + D ORAL Take 1 tablet by mouth once d* OXYCODONE-ACETAMINOPHEN 5 MG-* Take 1 tablet by mouth every * Patient not taking: Reported on 02/17/2018 CYTOMEL ORAL Take 1.25 mg by mouth once da* LISINOPRIL 10 MG TABLET Take 10 mg by mouth once hieu* ZOLPIDEM ER 12.5 MG TABLET,EX* Take 12.5 mg by mouth at bedt* TOPIRAMATE 200 MG TABLET Take 600 mg by mouth once jodi* PROVENTIL INHALATION Inhale 2 Puffs as instructed * Problem List As Of Date 02/17/2018 Noted Resolved Asthma [J45.909] INVALID FOR* Hypertension [I10] INVALID FOR* Impaired fasting glucose [R73.01] INVALID FOR*11/07/2013 Other malaise and fatigue [R53.81, R53.83] INVALID FOR* Prolapse of vaginal rondon [N81.10] INVALID FOR* Female stress incontinence [N39.3] INVALID FOR* Prolapse of vaginal vault after hysterectomy [N*INVALID FOR* Bile duct calculus without cholecystitis and no*INVALID FOR* More... Biliary colic [K80.50] INVALID FOR* More... Encounter Status:Closed by ERIC NAYLOR DPM on 02/17/18 PROGRESS Observed: 02/17/2018 Status: COMPLETED Source: [place] 2:30 PM [facility] REPOSITORY O ID: [id number] Author: Eric Naylor Service: (none) Author Type: Physician Type: Progress Notes Filed: 02/17/2018 11:23 PM Note Text: ? Eric Naylor DPM Department of Podiatry [address] [place] [id number] Dept: [phone] Dept 02/17/2018 Initial Podiatric Office Visit: HPI: Cassandra Mejia is a 57 year old female. Patient presents with:Bilateral onychomycosis. Patient has no complaints of pain. She has tried Ruslan's and tea tree oil and neither has helped. PCP: Dylan Syed MD PAST MEDICAL HISTORY Diagnosis Date - Allergic rhinitis - Asthma - Depression - Essential hypertension - GERD (gastroesophageal reflux disease) - Hiatal hernia - UTI (lower urinary tract infection) Current Outpatient Prescriptions: indapamide (LOZOL) 1.25 mg tablet Take 1.25 mg by mouth once daily. guaiFENesin (MUCINEX) 600 mg 12 hr tablet Take 2 tablets by mouth twice daily. GUAIFENESIN/PSEUDOEPHEDRNE HCL (MUCINEX D ORAL) Take by mouth twice daily. ibuprofen (MOTRIN) 600 mg tablet Take 1 tablet by mouth every 6 hours as needed for Pain. Take with food. acetaminophen (TYLENOL) 500 mg tablet Take 2 tablets by mouth every 8 hours as needed. CYANOCOBALAMIN, VITAMIN B-12, (B-12 DOTS ORAL) Take 3,000 Units by mouth once daily. lansoprazole (PREVACID) 30 mg capsule Take 30 mg by mouth once daily. venlafaxine XR (EFFEXOR XR) 150 mg 24 hr capsule Take 150 mg by mouth once daily. acyclovir (ZOVIRAX) 400 mg tablet Take 1 tablet by mouth twice daily. ALPRAZolam (XANAX) 0.5 mg tablet Take 1 tablet by mouth at bedtime as needed. hydrocortisone 2.5 % cream Apply 1 application to affected area twice daily. Apply to affected area sparingly. montelukast (SINGULAIR) 10 mg tablet Take 1 tablet by mouth daily at bedtime. LORATADINE (CLARITIN ORAL) Take 1 tablet by mouth daily at bedtime. MOMETASONE FUROATE (NASONEX NASAL) Use 1 Earlimart in the nose once daily. CALCIUM CARBONATE/VITAMIN D3 (CALCIUM + D ORAL) Take 1 tablet by mouth once daily. oxyCODONE-acetaminophen (PERCOCET) 5-325 mg tablet Take 1 tablet by mouth every 6 hours as needed for Pain. (Patient not taking: Reported on 02/17/2018 ) LIOTHYRONINE SODIUM (CYTOMEL ORAL) Take 1.25 mg by mouth once daily. lisinopril (PRINIVIL) 10 mg tablet Take 10 mg by mouth once daily. Zolpidem (AMBIEN CR) 12.5 mg CR tablet Take 12.5 mg by mouth at bedtime as needed. topiramate (TOPAMAX) 200 mg tablet Take 600 mg by mouth once daily. ALBUTEROL SULFATE (PROVENTIL INHALATION) Inhale 2 Puffs as instructed as needed. No current facility-administered medications for this visit. ALLERGIES Allergen Reactions - Animal Dander Other: See Comments congestion, sneezing, runny nose - Dust Other: See Comments stuffy nose - Pollen Other: See Comments stuffy nose, congestion, watery eyes Mold also PAST SURGICAL HISTORY Procedure Laterality Date - DANDC, DIAG AND/OR THERAPEUTIC 1999, 2000 Dilation AND curettage x2 - LAP CHOLECYSTECT/CHOLANGIOGRAPHY 02/02/2017 normal IOC - PAST SURGICAL HISTORY OF 03/11/2016 Right iliococcygeus vaginal vault suspension, Anterior colporrhaphy, René transobturator midurethral sling, Rectocele repair with perineorrhaphy, cystoscopy - REMOVAL OF TONSILS,<12 Y/O Tonsillectomy - VAGINAL HYSTERECTOMY 2009 Hysterectomy, vaginal, ovaries remain FAMILY HISTORY Problem Relation Age of Onset - Heart Mother Thoracic aneurysm - Heart Father - Hypertension Father - Diabetes Father - Stroke Father - Cancer Father testicular - Kidney Disease Other Nephew, one kidney - Coronary Artery Disease Brother - Asthma Brother Social History Marital status: Spouse name: Years of education: Number of children: 2 Occupational History Occupation Employer Comment [employer] Social History Main Topics Smoking status: Never Smoker Smokeless tobacco: Never Used Alcohol use: Yes Comment: social Drug use: No Sexual activity: Yes Partners with: Male REVIEW OF SYSTEMS: CONSTITUTIONAL: No fevers, chills, nightsweats, unintended weight loss HEENT: Denies frequent or severe heaches, nasal congestion/sinus symptoms, problematic allergy problems. EYES: No diplopia or blurry vision. CARDIOVASCULAR: No chest pain, dyspnea, palpitations, orthopnea, PND, ankle edema. PULM: No dyspnea, unexplained cough. GI: No dysphagia/odynophagia, problematic reflux, constipation, diarrhea, changes in stool habits, hematochezia, melena. : No new urinary complaints, including dysuria, gross hematuria or pyuria. NEURO: No new balance problems, peripheral weakness/paresthesias or numbness of concern. MUSC-SKEL: No new joint pain, swelling, or erythema. PSY: No concerns regarding depression, anxiety or panic. INTEGUMENTARY: b/l hallux toenail discoloration Physical Exam: Constitutional: Pt is a well developed 57 year old female who is alert, oriented and cooperative Eyes: Following during examination. No redness or drainage. Respiratory: RR normal and nonlabored. Even breathing. No evidence of distress or shortness of breath. Psychology: Patient is engaged during conversation. Normal affect and mood. Does not appear depressed or anxious during encounter. Vascular: Dorsalis pedis and posterior tibial pulses palpable as b/l Capillary Fill time < 5 seconds to digits 1-5 b/l Skin temperature warm to warm proximal to distal b/l Hair growth present to digits Neurological: intact light touch/epicritic sensation Vibratory sensation intact to hallux b/l Dermatological: b/l hallux toenail is discolored yellow and thick. No callus present to b/l feet. No open sores noted. Musculoskeletal/Orthopaedic: Patient has no pain to palpation of b/l feet Foot type is neutral structurally AJ ROM is full with knee extended and flexed 1st MPJ is full when loaded and no pain or crepitus are noted with ROM. MTJ, STJ are full and free of pain and crepitus. +5/5 muscle strength dorsiflexion, plantarflexion, inversion, eversion b/l Radiographs: n/a ASSESSMENT: (B35.1) Onychomycosis (primary encounter diagnosis) PLAN: 1. History and physical examination performed. 2. Patient was examined and informed of current findings 3. Discussed toenail discoloration. Discussed fungal vs trauma etiology. If fungus, discussed topical creams ,po lamisil, laser vs removal. Patient wishes to try lamisil. Discussed r/b/a to lamisil. She has elected to pursue lamisil pending hepatic panel 4. A fungal culture was obtained of toenail. Patient informed that fungal culture may be negative and if this does occur, lamisil may not result in resolution. She understands this. 5. Will notfiy her of hepatic panel and fungal culture. 6. She will need repeat hepatic panel 6 weeks after starting lamisil. Eric Naylor DPM PROGRESS Observed: 01/25/2018 Status: COMPLETED Source: [place] 10:16 AM [facility] REPOSITORY O ID: [id number] Author: Brendan (Word Processing Supervisor) Meka Service: (none) Author Type: Nurse Practitioner Type: Progress Notes Filed: 01/25/2018 10:19 AM Note Text: Telemedicine Visit - Distance Health Virtual Visit Note Patient seen on ethology Online platform. Location of patient: [place] History of Present Illness Cassandra Mejia is a 57 year old year old female who presents for the past 3 day(s) with symptoms that are: Constant pt with c/o white coating on tongue after completing course of Augmentin; + change in taste; no difficulty with eating, swallowing no fevers PAST MEDICAL HISTORY Diagnosis Date - Allergic rhinitis - Asthma - Depression - Essential hypertension - GERD (gastroesophageal reflux disease) - Hiatal hernia - UTI (lower urinary tract infection) PAST SURGICAL HISTORY Procedure Laterality Date - DANDC, DIAG AND/OR THERAPEUTIC 1999, 2000 Dilation AND curettage x2 - LAP CHOLECYSTECT/CHOLANGIOGRAPHY 02/02/2017 normal IOC - PAST SURGICAL HISTORY OF 03/11/2016 Right iliococcygeus vaginal vault suspension, Anterior colporrhaphy, René transobturator midurethral sling, Rectocele repair with perineorrhaphy, cystoscopy - REMOVAL OF TONSILS,<12 Y/O Tonsillectomy - VAGINAL HYSTERECTOMY 2008 Hysterectomy, vaginal, ovaries remain FAMILY HISTORY Problem Relation Age of Onset - Heart Mother Thoracic aneurysm - Heart Father - Hypertension Father - Diabetes Father - Stroke Father - Cancer Father testicular - Kidney Disease Other Nephew, one kidney - Coronary Artery Disease Brother - Asthma Brother Social History Marital status: Spouse name: Years of education: Number of children: 2 Occupational History Occupation Employer Comment [employer] Social History Main Topics Smoking status: Never Smoker Smokeless tobacco: Never Used Alcohol use: Yes Comment: social Drug use: No Sexual activity: Yes Partners with: Male Current Outpatient Prescriptions: clotrimazole (MYCELEX) 10 mg danna Use 1 Danna as instructed five times daily for 14 days. oxyCODONE-acetaminophen (PERCOCET) 5-325 mg tablet Take 1 tablet by mouth every 6 hours as needed for Pain. LIOTHYRONINE SODIUM (CYTOMEL ORAL) Take 1.25 mg by mouth once daily. indapamide (LOZOL) 1.25 mg tablet Take 1.25 mg by mouth once daily. guaiFENesin (MUCINEX) 600 mg 12 hr tablet Take 2 tablets by mouth twice daily. GUAIFENESIN/PSEUDOEPHEDRNE HCL (MUCINEX D ORAL) Take by mouth twice daily. ibuprofen (MOTRIN) 600 mg tablet Take 1 tablet by mouth every 6 hours as needed for Pain. Take with food. acetaminophen (TYLENOL) 500 mg tablet Take 2 tablets by mouth every 8 hours as needed. lisinopril (PRINIVIL) 10 mg tablet Take 10 mg by mouth once daily. Zolpidem (AMBIEN CR) 12.5 mg CR tablet Take 12.5 mg by mouth at bedtime as needed. CYANOCOBALAMIN, VITAMIN B-12, (B-12 DOTS ORAL) Take 3,000 Units by mouth once daily. topiramate (TOPAMAX) 200 mg tablet Take 600 mg by mouth once daily. lansoprazole (PREVACID) 30 mg capsule Take 30 mg by mouth once daily. venlafaxine XR (EFFEXOR XR) 150 mg 24 hr capsule Take 150 mg by mouth once daily. acyclovir (ZOVIRAX) 400 mg tablet Take 1 tablet by mouth twice daily. ALPRAZolam (XANAX) 0.5 mg tablet Take 1 tablet by mouth at bedtime as needed. hydrocortisone 2.5 % cream Apply 1 application to affected area twice daily. Apply to affected area sparingly. montelukast (SINGULAIR) 10 mg tablet Take 1 tablet by mouth daily at bedtime. LORATADINE (CLARITIN ORAL) Take 1 tablet by mouth daily at bedtime. MOMETASONE FUROATE (NASONEX NASAL) Use 1 Earlimart in the nose once daily. CALCIUM CARBONATE/VITAMIN D3 (CALCIUM + D ORAL) Take 1 tablet by mouth once daily. ALBUTEROL SULFATE (PROVENTIL INHALATION) Inhale 2 Puffs as instructed as needed. No current facility-administered medications for this visit. ALLERGIES Allergen Reactions - Animal Dander Other: See Comments congestion, sneezing, runny nose - Dust Other: See Comments stuffy nose - Pollen Other: See Comments stuffy nose, congestion, watery eyes Mold also Video Exam (Examination performed via Video enabled technology) General appearance: Alert, oriented, pleasant, in NAD :Yes Ill appearing :No Lethargic appearing :No Eyes: Sclera clear :Yes Conjunctiva without erythema :Yes tongue - + white coating on tongue ASSESSMENT/PLAN: 1. Oral thrush - ICD9: 112.0, ICD10: B37.0 - CLOTRIMAZOLE 10 MG DANNA - Mycelex troches as directed; use 30 minutes after meals and at bedtime - rinse mouth after inhaler use - good oral hygiene - Red flags discussed for need for in person care - All questions answered Brendan Jameson APRN.KWAN If you let us know who your primary care provider is, we will send them a notification of today?s visit through our electronic medical records system. Since not all providers have access to our notifications, we strongly encourage you to share the following record of today?s visit with your primary care provider at your next visit. This will help in providing you the best care. DOWNTIME REPORT Observed: 01/07/2018 Status: F Source: [place] 1:38 PM [facility] REPOSITORY [facility] Medical Records Department [address] [place] [address] Downtime Report MR#: [id number] Acct: [id number] Name: CASSANDRA MEJIA Rep #: [id number] : 1960 57 From: Gordy Tamayo PCP: Dylan Syed MD Status: REG CLI This patient was seen during an EMR downtime December 21, 2017 - December 28, 2017. This patient may have a combination of paper and electronic documentation or all paper documentation. All documentation is viewable within the e-chart portion of [employer] for each patient visit. TSH Collected: 12/30/2017 Status: F Source: [place] 8:10 AM CLINIC REFERENCE REPOSITORY TYPE CODE TESTS RESULT OUT OF RANGE REFERENCE UNITS LAB TSH(LOINC) 0.400-5.500 uU/mL Low TSH 0.386 Performed By: #### FREET3, TSH, FT4 #### [facility] Routine Lab [address] [place], [place] [id number] FREE T3 Collected: 12/30/2017 Status: F Source: [place] 8:10 AM CLINIC REFERENCE REPOSITORY TYPE CODE TESTS RESULT OUT OF RANGE REFERENCE UNITS LAB FREET3(LOIN 2.3-4.1 pg/mL C) Free T3 3.1 Performed By: #### FREET3, TSH, FT4 #### [facility] Routine Lab [address] [place], [place] [id number] FREE T4 Collected: 12/30/2017 Status: F Source: [place] 8:10 AM CLINIC REFERENCE REPOSITORY TYPE CODE TESTS RESULT OUT OF RANGE REFERENCE UNITS LAB FT4(LOINC) 0.9-1.7 ng/dL Free T4 1.4 Performed By: #### FREET3, TSH, FT4 #### [facility] Routine Lab [address] [place], [place] [address] Observed: 12/24/2017 Status: F Source: [place] CULTURE, URINE 4:00 PM [facility] REPOSITORY RESULT(S) PREVIOUSLY REPORTED ON MANUAL REQUISITION DURING DOWNTIME. Urine Culture ORGANISM 1: Mixed Gram Pos AND Gram Neg Org [place] Count 80,000-100,000 MIX CULTURE Mixed contaminants. Submit a new specimen if indicated. Performed By: #### [id number] #### [facility] [address] [place], [address] PROGRESS Observed: 12/17/2017 Status: COMPLETED Source: [place] 12:08 PM CLINIC MAIN CAMPUS REPOSITORY HNO ID: [id number] Author: Kori (Rn) ESEQUIEL Gonzalez Service: (none) Author Type: Registered Nurse Type: Progress Notes Filed: 12/17/2017 12:22 PM Note Text: Dylan Syed MD-[facility] CARE COORDINATION NOTE Is currently enrolled in the Asthma and Weight Management programs for [employer] ASTHMA Recent exacerbations No ED/Hospital admit No Asthma triggers include pollen, dander, stress Currently utilizing albuterol rescue inhaler - has not needed in a long while. (frequency) Last filled 07/24/17 Instructed on checking expiration. Asthma Action plan in place ACT Score 25 WEIGHT 2 BMI goal set based on weight documented on 04/16/17 of 173lbs. Weight goal to reach between 03/03/18-04/18/18 of 162 lbs Reminded member of established weight goal, deadline and of the importance of reporting a final documented weight to me. Is currently following diet- cutting portions, decreased sweets Current exercise program frequency walking *LDL goal is at or below 130-- Cholesterol, Total (mg/dL) Date Value 01/26/2017 210 02/12/2016 195 HDL Cholesterol (mg/dL) Date Value 01/26/2017 57 02/12/2016 50 LDL Cholesterol (mg/dL) Date Value 01/26/2017 125 02/12/2016 116 Triglyceride (mg/dL) Date Value 01/26/2017 140 02/12/2016 143 LDL Cholesterol, Direct Date Value Ref Range Status 03/13/2014 116 60 - 129 mg/dL Final Is member currently being treated for Hyperlipidemia? No If yes, is lipid panel done annually? No * BP at or below 140/90 Last 3 BP Last 3 Encounter BP Readings: Date: BP: 01/30/2017 124/70 01/21/2017 112/76 11/19/2016 120/72 Is member currently being treated for Hypertension Yes Has there been a Basic Metabolic Panel done within the last year?Yes Glucose (mg/dL) Date Value 08/13/2017 Requisitioning entry error Potassium (mmol/L) Date Value 08/13/2017 Requisitioning entry error Sodium (mmol/L) Date Value 08/13/2017 Requisitioning entry error Chloride (mmol/L) Date Value 08/13/2017 Requisitioning entry error CO2 (mmol/L) Date Value 08/13/2017 Requisitioning entry error Creatinine (mg/dL) Date Value 08/13/2017 Requisitioning entry error BUN (mg/dL) Date Value 08/13/2017 Requisitioning entry error Anion Gap (mmol/L) Date Value 08/13/2017 Requisitioning entry error Calcium (mg/dL) Date Value 08/13/2017 Requisitioning entry error Health Maintenance PAP EVERY 5 YEARS due on 1989 HPV EVERY 5 YEARS due on 1989 MAMMOGRAM due on 1999 COLORECTAL CANCER SCREENING,SEE MODIFIER due on 2009 DTAP,TDAP,TD(2 - Td) due on 11/12/2017 Medication Refill Adherence Yes Depression Screening- During the last month or since our last conversation, have you often been bothered by feeling down, depressed or hopeless?No During the last month or since our last conversation, have you been bothered by little interest or pleasure in doing things?No (if answer yes, please complete extended depression screening) Asked member to reach out to me with any questions before next call in 12 weeks if needed. Kori Gonzalez RN December 17, 2017 12:08 PM CNPTOUTREACH Observed: 12/17/2017 Status: COMPLETED Source: [place] 12:00 AM [facility] REPOSITORY Patient Outreach (MNGDCR) MARLENCASSANDRA ([id number]) 1960 F Date Time Provider Department 12/17/17 KORI GONZALEZ (RN) [place] During your visit today, we recorded the following information about you: Kori Gonzalez RN, RN 12/17/2017 12:22 PM Signed Dylan Syed MD-[facility] CARE COORDINATION NOTE Is currently enrolled in the Asthma and Weight Management programs for [employer] ASTHMA Recent exacerbations No ED/Hospital admit No Asthma triggers include pollen, dander, stress Currently utilizing albuterol rescue inhaler - has not needed in a long while. (frequency) Last filled 07/24/17 Instructed on checking expiration. Asthma Action plan in place ACT Score 25 WEIGHT 2 BMI goal set based on weight documented on 04/16/17 of 173lbs. Weight goal to reach between 03/03/18-04/18/18 of 162 lbs Reminded member of established weight goal, deadline and of the importance of reporting a final documented weight to me. Is currently following diet- cutting portions, decreased sweets Current exercise program frequency walking *LDL goal is at or below 130-- Cholesterol, Total (mg/dL) Date Value 01/26/2017 210 02/12/2016 195 HDL Cholesterol (mg/dL) Date Value 01/26/2017 57 02/12/2016 50 LDL Cholesterol (mg/dL) Date Value 01/26/2017 125 02/12/2016 116 Triglyceride (mg/dL) Date Value 01/26/2017 140 02/12/2016 143 LDL Cholesterol, Direct Date Value Ref Range Status 03/13/2014 116 60 - 129 mg/dL Final Is member currently being treated for Hyperlipidemia? No If yes, is lipid panel done annually? No * BP at or below 140/90 Last 3 BP Last 3 Encounter BP Readings: Date: BP: 01/30/2017 124/70 01/21/2017 112/76 11/19/2016 120/72 Is member currently being treated for Hypertension Yes Has there been a Basic Metabolic Panel done within the last year?Yes Glucose (mg/dL) Date Value 08/13/2017 Requisitioning entry error Potassium (mmol/L) Date Value 08/13/2017 Requisitioning entry error Sodium (mmol/L) Date Value 08/13/2017 Requisitioning entry error Chloride (mmol/L) Date Value 08/13/2017 Requisitioning entry error CO2 (mmol/L) Date Value 08/13/2017 Requisitioning entry error Creatinine (mg/dL) Date Value 08/13/2017 Requisitioning entry error BUN (mg/dL) Date Value 08/13/2017 Requisitioning entry error Anion Gap (mmol/L) Date Value 08/13/2017 Requisitioning entry error Calcium (mg/dL) Date Value 08/13/2017 Requisitioning entry error Health Maintenance PAP EVERY 5 YEARS due on 1989 HPV EVERY 5 YEARS due on 1989 MAMMOGRAM due on 1999 COLORECTAL CANCER SCREENING,SEE MODIFIER due on 2009 DTAP,TDAP,TD(2 - Td) due on 11/12/2017 Medication Refill Adherence Yes Depression Screening- During the last month or since our last conversation, have you often been bothered by feeling down, depressed or hopeless?No During the last month or since our last conversation, have you been bothered by little interest or pleasure in doing things?No (if answer yes, please complete extended depression screening) Asked member to reach out to me with any questions before next call in 12 weeks if needed. Kori Gonzalez RN December 17, 2017 12:08 PM Allergies As of Date: 12/17/2017 Noted Allergy Reaction ANIMAL DANDER 11/12/2012 14 - Other: See Comments Comments: congestion, sneezing, runny nose DUST 11/12/2012 14 - Other: See Comments Comments: stuffy nose POLLEN 11/12/2012 14 - Other: See Comments Comments: stuffy nose, congestion, watery eyes Mold also Date Reviewed: 02/10/2017 Reviewed by: Ronnie Vincent LPN - Fully Assessed Reason for Visit: Care Coordination [3491] Weight Problem [121] Prescriptions as of 12/17/2017 Sig: OXYCODONE-ACETAMINOPHEN 5 MG-* Take 1 tablet by mouth every * CYTOMEL ORAL Take 1.25 mg by mouth once da* INDAPAMIDE 1.25 MG TABLET Take 1.25 mg by mouth once da* GUAIFENESIN ER 600 MG TABLET,* Take 2 tablets by mouth twice* MUCINEX D ORAL Take by mouth twice daily. IBUPROFEN 600 MG TABLET Take 1 tablet by mouth every * ACETAMINOPHEN 500 MG TABLET Take 2 tablets by mouth every* LISINOPRIL 10 MG TABLET Take 10 mg by mouth once hieu* ZOLPIDEM ER 12.5 MG TABLET,EX* Take 12.5 mg by mouth at bedt* B-12 DOTS ORAL Take 3,000 Units by mouth onc* TOPIRAMATE 200 MG TABLET Take 600 mg by mouth once jodi* LANSOPRAZOLE 30 MG CAPSULE,DE* Take 30 mg by mouth once hieu* VENLAFAXINE ER 150 MG CAPSULE* Take 150 mg by mouth once jodi* ACYCLOVIR 400 MG TABLET Take 1 tablet by mouth twice * ALPRAZOLAM 0.5 MG TABLET Take 1 tablet by mouth at bed* HYDROCORTISONE 2.5 % TOPICAL * Apply 1 application to affect* MONTELUKAST 10 MG TABLET Take 1 tablet by mouth daily * CLARITIN ORAL Take 1 tablet by mouth daily * NASONEX NASAL Use 1 Earlimart in the nose once * CALCIUM + D ORAL Take 1 tablet by mouth once d* PROVENTIL INHALATION Inhale 2 Puffs as instructed * Problem List As Of Date 12/17/2017 Noted Resolved Asthma [J45.909] INVALID FOR* Hypertension [I10] INVALID FOR* Impaired fasting glucose [R73.01] INVALID FOR*11/07/2013 Other malaise and fatigue [R53.81, R53.83] INVALID FOR* Prolapse of vaginal rondon [N81.10] INVALID FOR* Female stress incontinence [N39.3] INVALID FOR* Prolapse of vaginal vault after hysterectomy [N*INVALID FOR* Bile duct calculus without cholecystitis and no*INVALID FOR* More... Biliary colic [K80.50] INVALID FOR* More... Encounter Status:Closed by KORI GONZALEZ on 12/17/17 Observed: 10/13/2017 Status: F Source: [place] CULTURE, NOSE 1:15 PM [facility] REPOSITORY Gram Stain Gram Stain No White Blood Cells 1+ Epithelial cells No organisms seen Nasoph. Cult ORGANISM 1: Enterobacter cloacae complex Amount Growth 2+ Enterobacter cloacae complex: REACTION Amoxacillin/Clavulanic Acid $ 4 R Cefazolin $ >=64 R Cefepime $ <=1 S Ceftriaxone $ <=1 S Ciprofloxacin $ <=0.25 S Ertapenim $$$ <=0.5 S Gentamicin $ <=1 S Imipenem *NF <=0.25 S Levofloxacin $ <=0.12 S Piperacillin/Tazobactam $$ <=4 S Tobramycin $ <=1 S Trimethoprim/Sulfametho $ <=20 S (NF) indicates non-formulary drug at [facility]. Approval by Infectious Disease Specialist required before non-formulary drugs may be ordered and/or dispensed. Performed By: #### [id number] #### [facility] [address] [place] [address]. [place], [address] PROGRESS Observed: 10/06/2017 Status: COMPLETED Source: [place] 10:20 AM [facility] REPOSITORY HNO ID: [id number] Author: Kori (Rn) ESEQUIEL Gonzalez Service: (none) Author Type: Registered Nurse Type: Progress Notes Filed: 10/06/2017 10:26 AM Note Text: Dylan Syed MD-[facility] CARE COORDINATION NOTE Is currently enrolled in the Asthma and Weight Management programs for [employer] ASTHMA Recent exacerbations No ED/Hospital admit No Asthma triggers include pollen, dander, stress Currently utilizing albuterol rescue inhaler - about 8 weeks ago. She states she just got it filled again. Asthma Action plan in place ACT Score 25 WEIGHT 2 BMI goal set based on weight documented on 04/16/17 of 173lbs. Weight goal to reach between 03/03/18-04/18/18 of 162 lbs Reminded member of established weight goal, deadline and of the importance of reporting a final documented weight to me. Is currently following diet- cutting portions, decreased sweets Current exercise program frequency - walking *LDL goal is at or below 130-- Cholesterol, Total (mg/dL) Date Value 01/26/2017 210 02/12/2016 195 HDL Cholesterol (mg/dL) Date Value 01/26/2017 57 02/12/2016 50 LDL Cholesterol (mg/dL) Date Value 01/26/2017 125 02/12/2016 116 Triglyceride (mg/dL) Date Value 01/26/2017 140 02/12/2016 143 LDL Cholesterol, Direct Date Value Ref Range Status 03/13/2014 116 60 - 129 mg/dL Final Is member currently being treated for Hyperlipidemia? No If yes, is lipid panel done annually? Yes * BP at or below 140/90 Last 3 BP Last 3 Encounter BP Readings: Date: BP: 01/30/2017 124/70 01/21/2017 112/76 11/19/2016 120/72 Is member currently being treated for Hypertension No Has there been a Basic Metabolic Panel done within the last year?No Glucose (mg/dL) Date Value 08/13/2017 Requisitioning entry error Potassium (mmol/L) Date Value 08/13/2017 Requisitioning entry error Sodium (mmol/L) Date Value 08/13/2017 Requisitioning entry error Chloride (mmol/L) Date Value 08/13/2017 Requisitioning entry error CO2 (mmol/L) Date Value 08/13/2017 Requisitioning entry error Creatinine (mg/dL) Date Value 08/13/2017 Requisitioning entry error BUN (mg/dL) Date Value 08/13/2017 Requisitioning entry error Anion Gap (mmol/L) Date Value 08/13/2017 Requisitioning entry error Calcium (mg/dL) Date Value 08/13/2017 Requisitioning entry error Health Maintenance PAP EVERY 5 YEARS due on 1989 HPV EVERY 5 YEARS due on 1989 MAMMOGRAM due on 1999 COLORECTAL CANCER SCREENING,SEE MODIFIER due on 2009 Medication Refill Adherence Yes Depression Screening- During the last month or since our last conversation, have you often been bothered by feeling down, depressed or hopeless?No During the last month or since our last conversation, have you been bothered by little interest or pleasure in doing things?No (if answer yes, please complete extended depression screening) Asked member to reach out to me with any questions before next call in 12 weeks if needed. Kori Gonzalez RN October 06, 2017 10:20 AM ABIGAIL Observed: 10/06/2017 Status: COMPLETED Source: [place] 12:00 AM [facility] REPOSITORY Patient Outreach (MNGDCR) CASSANDRA MEJIA ([id number]) 1960 F Date Time Provider Department 10/06/17 KORI GONZALEZ (ESEQUIEL) SHE[place] During your visit today, we recorded the following information about you: Kori Gonzalez RN, RN 10/06/2017 10:26 AM Signed Dylan Syed MD-[facility] CARE COORDINATION NOTE Is currently enrolled in the Asthma and Weight Management programs for [employer] ASTHMA Recent exacerbations No ED/Hospital admit No Asthma triggers include pollen, dander, stress Currently utilizing albuterol rescue inhaler - about 8 weeks ago. She states she just got it filled again. Asthma Action plan in place ACT Score 25 WEIGHT 2 BMI goal set based on weight documented on 04/16/17 of 173lbs. Weight goal to reach between 03/03/18-04/18/18 of 162 lbs Reminded member of established weight goal, deadline and of the importance of reporting a final documented weight to me. Is currently following diet- cutting portions, decreased sweets Current exercise program frequency - walking *LDL goal is at or below 130-- Cholesterol, Total (mg/dL) Date Value 01/26/2017 210 02/12/2016 195 HDL Cholesterol (mg/dL) Date Value 01/26/2017 57 02/12/2016 50 LDL Cholesterol (mg/dL) Date Value 01/26/2017 125 02/12/2016 116 Triglyceride (mg/dL) Date Value 01/26/2017 140 02/12/2016 143 LDL Cholesterol, Direct Date Value Ref Range Status 03/13/2014 116 60 - 129 mg/dL Final Is member currently being treated for Hyperlipidemia? No If yes, is lipid panel done annually? Yes * BP at or below 140/90 Last 3 BP Last 3 Encounter BP Readings: Date: BP: 01/30/2017 124/70 01/21/2017 112/76 11/19/2016 120/72 Is member currently being treated for Hypertension No Has there been a Basic Metabolic Panel done within the last year?No Glucose (mg/dL) Date Value 08/13/2017 Requisitioning entry error Potassium (mmol/L) Date Value 08/13/2017 Requisitioning entry error Sodium (mmol/L) Date Value 08/13/2017 Requisitioning entry error Chloride (mmol/L) Date Value 08/13/2017 Requisitioning entry error CO2 (mmol/L) Date Value 08/13/2017 Requisitioning entry error Creatinine (mg/dL) Date Value 08/13/2017 Requisitioning entry error BUN (mg/dL) Date Value 08/13/2017 Requisitioning entry error Anion Gap (mmol/L) Date Value 08/13/2017 Requisitioning entry error Calcium (mg/dL) Date Value 08/13/2017 Requisitioning entry error Health Maintenance PAP EVERY 5 YEARS due on 1989 HPV EVERY 5 YEARS due on 1989 MAMMOGRAM due on 1999 COLORECTAL CANCER SCREENING,SEE MODIFIER due on 2009 Medication Refill Adherence Yes Depression Screening- During the last month or since our last conversation, have you often been bothered by feeling down, depressed or hopeless?No During the last month or since our last conversation, have you been bothered by little interest or pleasure in doing things?No (if answer yes, please complete extended depression screening) Asked member to reach out to me with any questions before next call in 12 weeks if needed. Kori Gonzalez RN October 06, 2017 10:20 AM Allergies As of Date: 10/06/2017 Noted Allergy Reaction ANIMAL DANDER 11/12/2012 14 - Other: See Comments Comments: congestion, sneezing, runny nose DUST 11/12/2012 14 - Other: See Comments Comments: stuffy nose POLLEN 11/12/2012 14 - Other: See Comments Comments: stuffy nose, congestion, watery eyes Mold also Date Reviewed: 02/10/2017 Reviewed by: Ronnie Vincent LPN - Fully Assessed Reason for Visit: Care Coordination [3491] Asthma [11] Weight Problem [121] Prescriptions as of 10/06/2017 Sig: OXYCODONE-ACETAMINOPHEN 5 MG-* Take 1 tablet by mouth every * CYTOMEL ORAL Take 1.25 mg by mouth once da* INDAPAMIDE 1.25 MG TABLET Take 1.25 mg by mouth once da* GUAIFENESIN ER 600 MG TABLET,* Take 2 tablets by mouth twice* MUCINEX D ORAL Take by mouth twice daily. IBUPROFEN 600 MG TABLET Take 1 tablet by mouth every * ACETAMINOPHEN 500 MG TABLET Take 2 tablets by mouth every* LISINOPRIL 10 MG TABLET Take 10 mg by mouth once hieu* ZOLPIDEM ER 12.5 MG TABLET,EX* Take 12.5 mg by mouth at bedt* B-12 DOTS ORAL Take 3,000 Units by mouth onc* TOPIRAMATE 200 MG TABLET Take 600 mg by mouth once jodi* LANSOPRAZOLE 30 MG CAPSULE,DE* Take 30 mg by mouth once hieu* VENLAFAXINE ER 150 MG CAPSULE* Take 150 mg by mouth once jodi* ACYCLOVIR 400 MG TABLET Take 1 tablet by mouth twice * ALPRAZOLAM 0.5 MG TABLET Take 1 tablet by mouth at bed* HYDROCORTISONE 2.5 % TOPICAL * Apply 1 application to affect* MONTELUKAST 10 MG TABLET Take 1 tablet by mouth daily * CLARITIN ORAL Take 1 tablet by mouth daily * NASONEX NASAL Use 1 [place] in the nose once * CALCIUM + D ORAL Take 1 tablet by mouth once d* PROVENTIL INHALATION Inhale 2 Puffs as instructed * Problem List As Of Date 10/06/2017 Noted Resolved Asthma [J45.909] INVALID FOR* Hypertension [I10] INVALID FOR* Impaired fasting glucose [R73.01] INVALID FOR*11/07/2013 Other malaise and fatigue [R53.81, R53.83] INVALID FOR* Prolapse of vaginal rondon [N81.10] INVALID FOR* Female stress incontinence [N39.3] INVALID FOR* Prolapse of vaginal vault after hysterectomy [N*INVALID FOR* Bile duct calculus without cholecystitis and no*INVALID FOR* More... Biliary colic [K80.50] INVALID FOR* More... Questionnaire: ASTHMA CONTROL TEST Last 4 weeks, your asthma limited your activity at work or home: -> 5 NONE OF THE TIME Past 4 weeks, how often have you had shortness of breath? -> 5 NOT AT ALL Past 4 weeks: Asthma symptoms woke you at night or earlier than usual? -> 5 NOT AT ALL Past 4 weeks: How often did you use rescue inhaler or nebulizer med? -> 5 NOT AT ALL Rate your Asthma Control during the past 4 weeks: -> 5 COMPLETELY CONTROLLED ACT TOTAL SCORE: -> 25 Encounter Status:Closed by KORI GONZALEZ on 10/06/17 HEMOGLOBIN A1C Collected: 10/01/2017 Status: F Source: [place] 9:37 AM [facility] REPOSITORY TYPE CODE TESTS RESULT OUT OF REFERENCE UNITS RANGE LAB HGBA1C 4.3-5.6 % High Hemoglobin A1c 5.9 LAB HBA0 mg/dL Est. Average Glucose 123 Result Comment: eAG: (Estimated average glucose) is a calculated value from HgbA1c and is personal financial representative of the average blood glucose level in the last 2-3 month period. Performed By: #### HBA1C #### [facility] [address] [place], [place] [address] MAGNESIUM Collected: 08/13/2017 Status: F Source: [place] 7:54 AM [facility] REPOSITORY TYPE CODE TESTS RESULT OUT OF REFERENCE UNITS RANGE LAB MG 1.7-2.3 mg/dL Requisitioning Magnesium entry error Result Comment: SHARMILA [id number] Account Credited Performed By: #### MG1, RFP #### [facility] [address] [place], [place] [address] RENAL FUNCTION PANEL Collected: 08/13/2017 Status: F Source: [place] 7:54 AM [facility] REPOSITORY TYPE CODE TESTS RESULT OUT OF REFERENCE UNITS RANGE LAB ALB 3.9-4.9 g/dL Requisitioning Albumin entry error Result Comment: [place] [id number] Account Credited LAB CA 8.5-10.2 mg/dL Requisitioning entry Calcium, Total error Result Comment: [place] [id number] Account Credited LAB PHOS 2.7-4.8 mg/dL Requisitioning entry Phosphorus error Result Comment: AL [id number] Account Credited LAB GLU 74-99 mg/dL Requisitioning entry Glucose error Result Comment: [place] [id number] Account Credited LAB BUN 7-21 mg/dL Requisitioning entry BUN error Result Comment: AL [id number] Account Credited LAB CRET 0.58-0.96 mg/dL Requisitioning entry Creatinine error Result Comment: [place] [id number] Account Credited LAB NA 136-144 mmol/L Requisitioning entry Sodium error Result Comment: [place] [id number] Account Credited LAB K 3.7-5.1 mmol/L Requisitioning entry Potassium error Result Comment: [place] [id number] Account Credited LAB CL 97-105 mmol/L Requisitioning entry Chloride error Result Comment: [place] [id number] Account Credited LAB CO2 22-30 mmol/L Requisitioning entry error CO2 Result Comment: [place] [id number] Account Credited LAB AGAP 9-18 mmol/L Requisitioning entry Anion Gap error Result Comment: [place] [id number] Account Credited LAB GFRAA eGFR- Requisitioning entry Amer. error Result Comment: [place] [id number] Account Credited LAB GFRNAA . eGFR-All Requisitioning entry Other Races error Result Comment: [place] [id number] Account Credited LAB GFRPED eGFR-Ped. Requisitioning entry Factor error Result Comment: AL [id number] Account Credited Performed By: #### MG1, RFP #### [facility] [address] [place] [address] THYROGLOBULIN AB Collected: 07/29/2017 Status: F Source: [place] 9:10 AM [facility] REPOSITORY TYPE CODE TESTS RESULT OUT OF REFERENCE UNITS RANGE LAB TGAB <14.4 IU/mL Thyroglobulin Ab <1.0 Performed By: #### TGAB #### [facility] [place] [address] THYROID ANTIBODIES Collected: 07/28/2017 Status: F Source: [place] FOR REF LAB USE ONLY 7:44 AM [facility] REPOSITORY TYPE CODE TESTS RESULT OUT OF REFERENCE UNITS RANGE LAB MICRO <9 IU/mL Unable TPO Antibody to assay. Specimen improperly collected/handle d. Result Comment: Specimen collected in wrong container type. GOLD TOP SST REQUIRED FOR TEST. RECEVIED ONLY LT GREEN PST. TMK [id number] Account Credited LAB TGAB <14.4 IU/mL Thyroglobulin Unable to assay. Ab Specimen improperly collected/handled. Result Comment: Specimen collected in wrong container type. GOLD TOP SST REQUIRED FOR TEST. RECEVIED ONLY LT GREEN PST. TMK [id number] Account Credited Performed By: #### XMICTG, BMP, TSH, FREET3, FT4 #### [facility] [address] [place] [address] BASIC METABOLIC PANL Collected: 07/28/2017 Status: F Source: [place] 7:44 AM [facility] REPOSITORY TYPE CODE TESTS RESULT OUT OF REFERENCE UNITS RANGE LAB GLU 74-99 mg/dL High Glucose 106 Result Comment: The [place] [employer] (ADA) provides guidance for cutoff values for fasting glucose and random glucose. The ADA defines fasting as no caloric intake for at least 8 hours. Fas ting plasma glucose results between 100 to 125 mg/dL indicate increased risk for diabetes (prediabetes). Fasting plasma glucose results greater than or equal to 126 mg/dL meet the criteria for diagnosis of diabetes. In the absence of unequivocal hyperglycemia, results should be confirmed by repeat testing. In a patient with classic symptoms of hyperglycemia or hyperglycemic crisis, random plasma glucose results greater than or equal to 200 mg/dL meet the criteria for diagnosis of diabetes. Reference: Standards of Medical Care in Diabetes 2016, [place] [employer] Association. Diabetes Care. 2016.39(Suppl 1). LAB BUN 7-21 mg/dL BUN 20 LAB CRET 0.58-0.96 mg/dL Creatinine High 1.25 LAB NA 136-144 mmol/L Sodium 142 LAB K 3.7-5.1 mmol/L Low Potassium 3.4 LAB CL 97-105 mmol/L Chloride 104 LAB CO2 22-30 mmol/L CO2 23 LAB AGAP 9-18 mmol/L Anion Gap 15 LAB CA 8.5-10.2 mg/dL Calcium, Total 9.1 LAB GFRAA eGFR- Amer. 53 LAB GFRNAA . eGFR-All Other Races 44 Result Comment: eGFR (Estimated GFR) Units of measure: mL/min/1.73 meters squared eGFR is derived from the reexpressed MDRD Study equation using the following parameters: serum creatinine, age, gender and race. The creatinine assay has been calibrated to be traceable to IDMS. An eGFR <60 mL/min/1.73m2 for >3 months is consistent with chronic kidney disease. Refer to KDOQI guidelines for clinical interpretation. In patients with unstable renal function, e.g. those with acute kidney injury, the eGFR may not accurately reflect actual GFR. Performed By: #### XMICTG, BMP, TSH, FREET3, FT4 #### [facility] [address] [place], [place] [address] TSH Collected: 07/28/2017 Status: F Source: [place] 7:44 AM [facility] REPOSITORY TYPE CODE TESTS RESULT OUT OF RANGE REFERENCE UNITS LAB TSH 0.400-5.500 uU/mL TSH 0.441 Performed By: #### XMICTG, BMP, TSH, FREET3, FT4 #### [facility] [address] [place] [id number] FREE T3 Collected: 07/28/2017 Status: F Source: [place] 7:44 AM [facility] REPOSITORY TYPE CODE TESTS RESULT OUT OF RANGE REFERENCE UNITS LAB FREET3 2.3-4.1 pg/mL Free T3 2.6 Performed By: #### XMICTG, BMP, TSH, FREET3, FT4 #### [facility] [address] [place] [address] FREE T4 Collected: 07/28/2017 Status: F Source: [place] 7:44 AM [facility] REPOSITORY TYPE CODE TESTS RESULT OUT OF RANGE REFERENCE UNITS LAB FT4 0.9-1.7 ng/dL Free T4 1.1 Performed By: #### XMICTG, BMP, TSH, FREET3, FT4 #### [facility] [address] [place] [address] ALLERGIES ALLERGIES DATE TYPE / CODE NAME / CODE REACTION SEVERITY SOURCE 11/12/2012 DRUG ANIMAL DANDER OTHER: SEE [facility] INGREDI/[address] [place] [address](SNOMED Repository CT) 11/12/2012 Environ/4201 DUST OTHER: SEE [facility] [address]226(SNOMED [address] [place] [address]) Repository 11/12/2012 Environ/4201 POLLEN OTHER: SEE [facility] [address](SNOMED [facility] [place] [address]) Repository ENCOUNTERS ENCOUNTERS ADMIT/DISCHARGE ACCOUNT ADMITTING ENCOUNTER LOCATION SOURCE NUMBER CLASS 06/30/2018/06/30/20 [id number] Ambulatory [address] [place] Repository 06/30/2018/06/30/20 [id number] Ambulatory [address] Repository 06/30/2018/07/01/20 [id number] Ambulatory [address] Repository 06/14/2018 [id number] Ambulatory [facility] ing:LABSPEC Repository 03/16/2018/03/18/20 [id number] Ambulatory [address] Repository 03/16/2018/03/16/20 [id number] Ambulatory [address] Repository 02/17/2018/02/18/20 [id number] Ambulatory [address] Repository 02/17/2018/02/23/20 [id number] Ambulatory [address] Repository 01/25/2018/01/27/20 [id number] Ambulatory [address] Repository 12/24/2017 [id number] Ambulatory [facility] ing:MFPLAB Repository 10/13/2017 [id number] Ambulatory [facility] ing:LABSPEC Repository 10/01/2017/10/02/[id number] Repository PAYERS PAYERS ENCOUNTER GUARANTOR PAYER SUBSCRIBER SOURCE 06/14/2018 CASSANDRA L Primary CASSANDRA L [place] [id number] Insurance:MUTUAL SCHLABACHDOB: [id number]: Repository [id number]: 330 [id number] [phone] () Date:9356-08-61CN [address] [address], [place] [address]AG: 06/14/2018 Secondary NOT GIVENUNK [place] Insurance:SELF PAY [facility] Number: Effective Repository Date:2018-06-14 12/24/2017 CASSANDRA L Primary CASSANDRA L [place] [id number] Insurance:MUTUAL SCHLABACHDOB: [facility] [id number] [facility] Centerol[facility] Number: Repository [id number]: 330 [id number] [phone] () Date:6405-06-81XR [address] [address], [place] [address]LS: 12/24/2017 Secondary NOT GIVENUNK [place] Insurance:SELF PAY [facility] Number: Effective Repository Date:2017-12-24 10/13/2017 CASSANDRA L Primary CASSANDRA L [place] [id number] Insurance:MUTUAL SCHLABACHDOB: [facility] [id number] EHPPolicy Number: Repository [id number]: 330 [id number] [phone] () Date:1487-25-61TR [address] [address], [place] [address]LG: 10/13/2017 Secondary NOT GIVENUNK [place] Insurance:SELF PAY [facility] Number: Effective Repository Date:2017-10-13
== END ==
PROVIDERS: Family Provider Family Medicine; PCP Family Medicine; Referring Provider Nurse Practitioner Adult Health; Visit Provider Nurse Practitioner Adult Health
DX: R31.9 Hematuria, unspecified (principal)
CPT/HCPCS: 87077; 87086; 87088; 87186

== ENCOUNTER → 2018-08-03 16:14 | Outpatient (CLI) | payer OTHER, SELFPAY ==
--- NOTE | 2018-08-03 16:19 | BI_ITS ---
MAMMOGRAPHY - BILATERAL SCREENING REASON FOR EXAM: Female, 58 years old. Routine annual screening examination. PERTINENT HISTORY: Non-contributory. TECHNIQUE: Digital bilateral breast karl (3D mammographic acquisition) in the CC and MLO projections. 2-D mediolateral oblique (MLO) and craniocaudad (CC) views of both breasts were obtained. CAD: Full Field Digital Mammography with Computer Added Detection was performed. COMPARISON: Comparison is made with prior study dated March 19, 2017 and July 26, 2015. FINDINGS: Breast Composition: The breasts are almost entirely fatty. There are no dominant masses or suspicious calcifications. Stable benign-appearing bilateral axillary lymph nodes. No other significant abnormalities are identified. There has been no significant change since the prior study. BI/SCREENING MAMM (CAD), BILAT IMPRESSION: Stable bilateral screening mammogram. Yearly follow-up mammogram recommended. (A) ASSESSMENT CATEGORY: BIRADS Category 2: Benign. A letter regarding these results will be sent to the patient by the facility within 30 days. Approximately 10% of breast cancers are not detected by mammography. A normal mammogram should not delay biopsy of a clinically suspicious abnormality. [id number] Electronically Signed: Tu Tuttle MD at 8:32 EST Tel [phone], Service support ,
== END ==
PROVIDERS: Family Provider Family Medicine; PCP Family Medicine; Referring Provider Family Medicine; Visit Provider Family Medicine
DX: Z12.31 Encounter for screening mammogram for malignant neoplasm of breast (principal)
CPT/HCPCS: 77063; 77067

== ENCOUNTER → 2019-12-19 16:15 | Outpatient (CLI) | payer OTHER, SELFPAY ==
--- NOTE | 2019-12-19 16:19 | BI_ITS ---
MAMMOGRAPHY - BILATERAL SCREENING REASON FOR EXAM: Female, 59 years old. Routine annual screening examination. PERTINENT HISTORY: Non-contributory. TECHNIQUE: Digital bilateral breast shelly (3D mammographic acquisition) in the CC and MLO projections. 2-D mediolateral oblique (MLO) and craniocaudad (CC) views of both breasts were obtained. CAD: Full Field Digital Mammography with Computer Added Detection was performed. COMPARISON: Comparison is made with prior examination dated August 03, 2018 and March 19, 2017. FINDINGS: Breast Composition: The breasts are almost entirely fatty. There are no dominant masses or suspicious calcifications. No other significant abnormalities are identified. There has been no significant change since the prior study. BI/SCREEN MAMM (CAD) W/SHELLY BILAT IMPRESSION: Stable bilateral screening mammogram. Yearly follow-up mammogram recommended. (A) ASSESSMENT CATEGORY: BIRADS Category 1: Negative. A letter regarding these results will be sent to the patient by the facility within 30 days. Approximately 10% of breast cancers are not detected by mammography. A normal mammogram should not delay biopsy of a clinically suspicious abnormality. [id number] Electronically Signed: Tu Tuttle, at 9:05 EDT , Service support ,
--- NOTE | 2021-10-08 12:34 | STRESSREP ---
Stress Test Report Date: 10-08-2021 Procedure: Exercise tolerance test/imaging study Indications: Chest pain Consent: Per the patient Procedure: The patient exercised on a Donald protocol for 6 minutes completing Stage II achieving a peak heart rate of 131 bpm (86% predicted maximal heart rate) with a peak blood pressure 138/64 mmHg and a peak MET capacity of 7 METs. The baseline ECG demonstrated sinus bradycardia. The peak exercise ECG demonstrated approximately 0.5 mm of horizontal/upsloping ST segment depression in leads II, III, aVF, and V3 through V6 with subsequent resolution towards baseline in recovery. There were no cardiac dysrhythmias pretest, during exercise, or recovery. The functional capacity was considered average. There was no complaint of chest discomfort during exercise or recovery. The examination was discontinued secondary to shortness of breath and fatigue. Impression: 1. Technically adequate (percent predicted maximal heart rate greater than 85%) exercise tolerance test 2. Peak exercise ECG approximately 0.5 mm horizontal/upsloping ST segment depression in leads II, III, aVF, and V3 through V6 with subsequent resolution towards baseline in recovery 3. There were no cardiac dysrhythmias pretest, during exercise, or recovery 4. Nuclear images pending Myocardial perfusion imaging study: Technique: The patient was injected with 11.7 mCi of technetium 99m Cardiolite and subsequently rest SPECT Cardiolite nuclear imaging was obtained in the horizontal long, vertical long, and short axis views. The patient exercised on a Donald protocol for 6 minutes completing Stage II achieving a peak heart rate of 131 bpm (86% predicted maximal heart rate) with a peak blood pressure 138/64 mmHg and a peak MET capacity of 7 METs. The patient was injected with 32.8 mCi of technetium 99m Cardiolite and subsequently stress SPECT Cardiolite nuclear imaging was obtained in the horizontal long, vertical long, and short axis views. A gated Cardiolite study at peak stress was obtained. Interpretation: Rest and stress SPECT Cardiolite nuclear imaging status post realignment, normalization, and attenuation correction, demonstrates the appearance of relative uniform tracer uptake and myocardial perfusion appearing within normal limits. There is end systolic thickening and brightening. The gated Cardiolite study demonstrates myocardial thickening and inward wall motion. The reported LVEF is 75%. Impression: 1. Rest and stress SPECT Cardiolite nuclear imaging demonstrate relative uniform tracer uptake and myocardial perfusion appearing within normal limits. 2. The gated Cardiolite study reports an LVEF of 75%. This note was generated with [employer] software. It may contain incorrect words, spelling, and punctuation that were not noted in checking the note before signing.
== END ==
PROVIDERS: PCP Family Medicine; Referring Provider Family Medicine; Visit Provider Family Medicine
DX: Z12.31 Encounter for screening mammogram for malignant neoplasm of breast (principal)
CPT/HCPCS: 77063; 77067